=== PATIENT | male | born 1955 | race Caucasian/White ===

== ENCOUNTER 2018-02-28 10:54 | Day surgery (SDC) | payer OTHER, SELFPAY ==
[2018-02-28 11:17] VITALS: BP 150/70; PULSE 99; RESP 16; TEMP 36.7; O2SAT 98; BMI 25.3
--- NOTE | 2018-02-28 12:54 | PCM.OPRPT ---
Problem List (1) Cancer of upper lobe of right lung Status: Acute Report of Operation Date of Procedure: 02/28/18 Pre-Operative Diagnosis: c34.11 cancer upper lobe right lung Post-Operative Diagnosis: Same Surgery/Procedure Performed:: Placement of a right internal jugular PowerPort Type of Anesthesia:: MAC Anesthesiologist: Sina Burton Estimated Blood Loss (mL): 10 cc Description of Procedure: Patient was brought into the operating room. Placed in the supine position. Ultrasound of the neck on the right side revealed the internal jugular vein the neck and chest were then properly marked and then sterilely prepped and draped in the usual fashion. Seldinger's technique was used to gain access to the right internal jugular vein. Guidewire was placed over the needle. Local was injected and the chest incision was made and electrocautery was used to create a pocket for the port. Incision was made in the neck dilator and sheath were placed over the guidewire dilator and guidewire were removed single lumen catheter was placed through the sheath the sheath was removed. Fluoroscopy was used to confirm proper length. I tunneled from the chest over the collarbone into the neck and brought the catheter down. Catheter was cut to length locking hub was placed on the catheter to the port onto the catheter and the 2 secured with a locking hub. Catheter was flushed and irrigated with normal saline and hep flush without difficulty it worked properly and well. I sutured it into the pocket created with 2 sutures of 2-0 Prolene. Skin incisions were brought together with deep dermals of 3-0 Vicryl and then a running 4-0 Monocryl. Dermabond was applied sterile dressings were applied and the patient tolerated the procedure well. Postoperative chest x-ray was ordered. - Admit VTE Documentation VTE Present on Admission: No VTE Mechan Device Prophylaxis: SCD's VTE Pharm Prophylaxis ordered?: No Reason prophylaxis not ordered:: Treatment Not Indicated
[2018-02-28] MEDS: Cefazolin 2 GM in 0.9% Normal Saline 100 ML IV (12:56)
[2018-02-28] MEDS: Bupivacaine Mpf 0.5% 30 ML VIAL (13:25)
--- NOTE | 2018-02-28 13:29 | RAD_ITS ---
STUDY: X-RAY CHEST REASON FOR EXAM: Male, 62 years old. Line placement. TECHNIQUE: Single AP portable view of the chest. COMPARISON: None. FINDINGS: There is a right jugular Port-A-Cath with its tip in the proximal superior vena cava. There is no pneumothorax. The lungs are clear and expanded. There is no demonstrated pleural abnormality. Normal size heart. Normal mediastinum and barbara. Normal visualized pulmonary arteries. Normal visualized aortic arch and descending thoracic aorta. There is mild levoscoliosis and degenerative changes of the thoracic spine. There is degenerative osteoarthritis of the bilateral shoulders. This is most marked on the right. There is no demonstrated abnormality of the visualized soft tissue structures of the upper abdomen. RAD/CXR for Line Placement IMPRESSION: 1. Right jugular Port-A-Cath without pneumothorax. 2. No evidence of acute cardiopulmonary disease. Electronically Signed: Garfield Ahumada DO at 16:33 EDT Tel [phone], Service support ,
--- NOTE | 2018-02-28 13:30 | PCM.DC.POR ---
Discharge Diet: No Restrictions - Pain medication may cause nausea. You should typically eat light foods as you take your pain medication. Discharge Activity: May Shower - with the bandage in place 1-2 days after surgery. DO NOT SHOWER WHEN YOUR PORT IS ACCESSED. Additional Activity Instructions:: May not drive, work with heavy equipment, or sign legal documents for [address] if you are no longer taking narcotic pain medications. You may drive when you are no longer taking pain medications. Additional Dressing/Incision Instructions:: Leave the bandage on for 2-3 days. When you remove the bandage, leave the steri-strips intact until they fall off. Allergies/Adverse Reactions: Allergies No Known Allergies Allergy (Verified 02/28/18 11:15) Medications to take at Discharge Nicotine [Nicotine Patch] 1 ea TD DAILY 02/21/18 Docusate Sodium [Colace] 100 mg PO DAILY 02/22/18 Multivit-Minerals/FA/Lycopene [One Daily Men's Health Tablet] 1 tab PO DAILY 02/22/18 Sertraline HCl [Zoloft] 25 mg PO DAILY 30 Days #30 tab 02/22/18 Ibuprofen [Ibu] 800 mg PO TID 02/24/18 Acetaminophen [Tylenol Extra Strength] 500 mg PO TID 02/27/18 Omeprazole [Prilosec] 20 mg PO DAILY 02/27/18 Oxycodone HCl/Acetaminophen [Percocet 5/325] 1 tablet PO QHS 02/27/18 Oxycodone HCl/Acetaminophen [Percocet 5/325] 1 - 2 tab PO Q4H PRN PRN 4 Days #30 tab 02/28/18 The following prescriptions were given: Oxycodone HCl/Acetaminophen [Percocet 5/325] 1 - 2 tab PO Q4H PRN PRN 4 Days #30 tab PRN Reason: Pain Primary Care Physician: Reece Howe MD [Primary Care Provider] - Test Results: Test results from this visit will be discussed in further detail at your follow-up appointment, if applicable. Please Follow Up With: Dewayne Levy MD - [phone] When: Please plan to follow up in 7 days in the office.
[2018-02-28 13:41] VITALS: BP 138/77; BP 150/70; PULSE 84; RESP 16; TEMP 36.6; O2SAT 99
[2018-02-28 13:45] VITALS: BP 150/70; BP 154/91; PULSE 87; RESP 16; O2SAT 97
[2018-02-28 13:50] VITALS: BP 150/70; BP 152/82; PULSE 87; RESP 16; O2SAT 97
[2018-02-28 13:55] VITALS: BP 150/70; BP 150/90; PULSE 88; RESP 16; TEMP 36.5; O2SAT 97
[2018-02-28 14:36] VITALS: BP 150/70
== END 2018-02-28 14:40 | disposition home or self-care (01) ==
LOC: SDC 10:55 → AC 10:56
PROVIDERS: Family Provider Family Medicine; PCP Family Medicine; Visit Provider Surgery
PROC: (CPT 36561; principal; 2018-02-28 12:45)
DX: C34.11 Malignant neoplasm of upper lobe, right bronchus or lung (principal); J44.9 Chronic obstructive pulmonary disease, unspecified; Z87.891 Personal history of nicotine dependence
CPT/HCPCS: 36561; 71045; 77001; J7120; C1788

== ENCOUNTER → 2018-03-14 07:44 | Outpatient (CLI) | payer OTHER, SELFPAY ==
[2018-03-14] VITALS (10 sets, daily range): BP systolic 101–146; BP diastolic 51–76; PULSE 73–93; RESP 16–21; TEMP 37.1; O2SAT 95–100; BMI 25.7
--- NOTE | 2018-03-14 | IMM_PTH ---
PATIENT: REUBEN BURGOS LOC: CT U#:[id number] AGE/SX: 69/M ROOM: RE03/14/[address]: Dr. Tresa Paulson MD : 1955 BED: DIS: SPEC #: [id number] RECD: 03/15/18 13:36 STATUS: SARAH RELeslie #: [id number] DESIRAE: 03/14/18 00:[address]: Tresa Paulson DEPT: IMMUNOHISTOCHEMISTRY RECD BY: Kelsy Rios ENTERED: 03/15/18 13:37 SP TYPE: IMMUNO OTHR DR: Dr. Reece Howe MD Tissues: Lung, NOS Procedures: CK5-6 (initial) NAPSIN A (add) CK7 (add) TTF1 (add) P40 (add) PHYSICIAN & INSTITUTION [place] [phone] SPECIMEN INFORMATION: Tissue Source: Right lung Clinical Info: Malignant neoplasm of upper lobe, bronchus of lung Specimen Number: [id number] CPT code: 71123, 87217 x4 METHODOLOGY: Deparaffinized sections of prefer/formalin-fixed tissue or PAP/DQ stained slides are incubated with monoclonal/polyclonal antibodies/oligonucleotide probes. Localization is made via biotin free immunoperoxidase method. Appropriate controls are performed and reacted as expected. Results on target cell population are indicated in the following table: RESULTS: ANTIBODY / CLONE RESULT P40 (BC28) positive CK5-6 (D5 & 1684) positive TTF-1 (8G7G3/1) negative CK7 (OV-TL12/30) positive, focal Napsin A (Rabbit Polyclonal) negative These tests were developed and their performance characteristics determined by [facility]. They may not have been cleared or approved by the U.S. Food and Drug Administration. The FDA has determined that such clearance or approval is not necessary. INTERPRETATION: Right lung, CT-guided biopsy: Non-small cell carcinoma, favor squamous cell carcinoma. SJ:elena 03/15/18
--- NOTE | 2018-03-14 | LUNG_PTH ---
PATIENT: REUBEN BURGOS LOC: CT U#:[id number] AGE/SX: 69/M ROOM: RE03/14/[address]: Dr. Tresa Paulson MD : 1955 BED: DIS: SPEC #: [id number] RECD: 03/14/18 10:03 STATUS: SARAH SIERRA #: [id number] DESIRAE: 03/14/18 00:[address]: Tresa Paulson DEPT: SURGICAL PATHOLOGY RECD BY: Haile Mckenna ENTERED: 03/14/18 10:09 SP TYPE: LUNG BX OTHR DR: Dr. Reece Howe MD Tissues: Lung, NOS Procedures: Surgery Specimen Level IV Diff Quik Stain (control) HEADER OPERATION: CT-guided lung biopsy PRE-OP DIAGNOSIS: Malignant neoplasm of upper lobe, right bronchus of lung TISSUE SUBMITTED: Right lung MICROSCOPIC DIAGNOSIS Right lung, CT-guided core biopsy: Non-small cell carcinoma, favor squamous cell carcinoma. See comment. SJ:elena 03/15/18 COMMENT The specimen is evaluated at the time of CT-guided lung biopsy by Dr. Carr. Immediate Evaluation = Atypical cells noted suspicious for non-small cell carcinoma. Immunohistochemistry ([id number]) supports the above diagnosis. Specimen is sent for PD-L1 immunohistochemistry and results will be reported as an addendum. Please make reference to previous specimen from [facility] ([id number]), CT-guided core biopsy, right lung with diagnosis of poorly differentiated squamous cell carcinoma. Case has been reviewed in consultation with Dr. Davalos who concurs with the above diagnosis. IDC:AM MICROSCOPIC DESCRIPTION Slides are reviewed. GROSS DESCRIPTION Received in fixative is one container labeled with the patient's name and designated right lung, CT-guided core biopsy. The specimen consists of multiple irregular fragments of parsons soft tissue with brownish-black discoloration that in aggregate measure 1.5 x 0.1 x <0.1 cm. The specimen is totally submitted in one cassette. / YOLANDA:elena 8/14/18 TC:0 CPT: 31054, 28617
[2018-03-14 08:04] LABS: Absolute Lymphocyte Count 1.34 X10^3/ul (0.83-4.51); Absolute Neutrophil Count 16.8 X10^3/uL (2.0-7.7); Basophil# 0.06 X10^3/uL; Basophil% 0.3 % (0-1); Eosinophil# 1.38 X10^3/uL; Eosinophils% 6.6 % (0-5); Hematocrit 33.1 % (40-54); Hemoglobin 10.8 g/dl (13.0-16.5); Lymphocyte # 1.34 X10^3/ul (4.0); Lymphocyte % 6.4 % (19-41); Mean Corp Hgb Conc 32.6 g/gl (32-36); Mean Corpuscular Hgb 29.2 pg (27.0-32.0); Mean Corpuscular Volume 89.5 fL (80-94); Mean Platelet Vol. 9.3 fl (6.2-12.0); Monocyte# 1.34 X10^3/uL; Monocyte% 6.4 % (0-10); POSITIVE COUNT NO; POSITIVE DIFFERENTIAL NO; POSITIVE MORPHOLOGY NO; Platelet Count 427 K/mm3 (150-450); RBC Distribution Width CV 15.8 % (11.6-14.6); RBC Distribution Width SD 51.5 fl (35.1-43.9)
[2018-03-14 08:13] LABS: Prothrombin Time (Protime)PT. 13.1 SECONDS (11.7-14.9)
[2018-03-14 08:14] LABS: Partial Thromboplast Time 25.8 Seconds (24.1-36.2)
[2018-03-14 08:29] LABS: ALB/GLOB Ratio 0.7 RATIO (0.9-2.4); AST(SGOT) 20 U/L (15-37); Alanine Aminotransfer ALT/SGPT 17 U/L (16-61); Albumin, Serum 2.8 g/dL (3.2-5.0); Alkaline Phosphatase 114 U/L (45-117); Anion Gap 11 (5-15); BUN 25 mg/dL (7-18); BUN/Creat Ratio 16.6 RATIO (10-20); Calcium,Total 14.5 mg/dL (8.5-10.1); Chloride 103 mmol/L (98-107); Creatinine, Serum 1.51 mg/dL (0.70-1.30); EST Glomerular Filtration Rate 50 mL/min (>60); Est Glom Filt Rate - Afr Amer 61 mL/min (>60); Globulin 4.3 g/dL (2.2-4.2); Glucose 127 mg/dL (74-106); Potassium 3.5 mmol/L (3.5-5.1); Protein, Total 7.1 g/dL (6.4-8.2); Sodium Level 139 mmol/L (136-145)
--- NOTE | 2018-03-14 08:59 | NURSING ---
DR MARTIN AWARE OF HIGH CA LEVEL, OKAY TO GO AHEAD WITH PROCEDURE, WILL SEND AFTER RECOVERY TO DOCTORS OFFICE FOR INTERVENTION
[2018-03-14] MEDS: 0.9% Normal Saline 1,000 ML 500 ML IV (10:45)
== END ==
PROVIDERS: Family Provider Family Medicine; PCP Family Medicine; Visit Provider Internal Medicine Hematology & Oncology
DX: C34.11 Malignant neoplasm of upper lobe, right bronchus or lung (principal); R91.8 Other nonspecific abnormal finding of lung field
CPT/HCPCS: 32405; 96360; 96361; 36415; 71046; 77012; 80053; 85025; 85610; 85730; 88305; 88341; 88342; 99156; 99157; J7030; J7040; A4216

== ENCOUNTER 2018-03-15 19:15 | Observation (INO) | payer OTHER, SELFPAY ==
[2018-03-15 19:15] VITALS: BP 124/66; PULSE 88; RESP 22; TEMP 36.6; O2SAT 98; BMI 25.7
[2018-03-15 20:32] LABS: Absolute Lymphocyte Count 1.36 X10^3/ul (0.83-4.51); Absolute Neutrophil Count 15.8 X10^3/uL (2.0-7.7); Basophil# 0.06 X10^3/uL; Basophil% 0.3 % (0-1); Eosinophil# 1.12 X10^3/uL; Eosinophils% 5.7 % (0-5); Hematocrit 29.8 % (40-54); Hemoglobin 9.7 g/dl (13.0-16.5); Lymphocyte # 1.36 X10^3/ul (4.0); Lymphocyte % 6.9 % (19-41); Mean Corp Hgb Conc 32.6 g/gl (32-36); Mean Corpuscular Hgb 29.2 pg (27.0-32.0); Mean Corpuscular Volume 89.8 fL (80-94); Mean Platelet Vol. 9.3 fl (6.2-12.0); Monocyte# 1.21 X10^3/uL; Monocyte% 6.2 % (0-10); Neutrophil # 15.78 X10^3/uL (2.7-7.7); Neutrophil % 80.7 % (47-70); Platelet Count 402 K/mm3 (150-450); RBC Distribution Width CV 15.8 % (11.6-14.6); RBC Distribution Width SD 51.4 fl (35.1-43.9); Red Blood Count 3.32 M/mm3 (4.6-6.2); White Blood Count 19.6 K/mm3 (4.4-11.0)
[2018-03-15 20:33] LABS: POSITIVE COUNT NO; POSITIVE DIFFERENTIAL NO; POSITIVE MORPHOLOGY NO
[2018-03-15 20:55] LABS: Anion Gap 6 (5-15); BUN 19 mg/dL (7-18); BUN/Creat Ratio 17.6 RATIO (10-20); Calcium,Total 13.4 mg/dL (8.5-10.1); Chloride 107 mmol/L (98-107); Creatinine, Serum 1.08 mg/dL (0.70-1.30); EST Glomerular Filtration Rate 74 mL/min (>60); Est Glom Filt Rate - Afr Amer 89 mL/min (>60); Estimated Creatinine Clearance 70.92 ml/min; Glucose 90 mg/dL (74-106); Potassium 3.2 mmol/L (3.5-5.1); Sodium Level 139 mmol/L (136-145)
[2018-03-15 21:31] VITALS: PULSE 90; RESP 18; O2SAT 96
--- NOTE | 2018-03-15 22:22 | ED.VISSUMM ---
- ER Visit Summary Date of Service: 03/15/18 Chief Complaint: Shortness of breath History of Present Illness: The patient is a 62 M who presents with shortness of breath that began yesterday. Patient states his breathing has gotten worse today. Patient had a biopsy of his lung yesterday. Patient had a chest x-ray after the biopsy which showed a 5% pneumothorax. Patient had a follow-up x-ray today which showed a 10% pneumothorax. Patient talk to his oncologist today who told him to come to the emergency department if the developed any further shortness of breath. Patient denies any fevers. Patient denies any chest pain. Patient does admit to a cough but denies any sputum. Physical Examination: Vital signs are stable. Patient is afebrile. Patient is in no acute distress. Patient is not hypoxic on exam. Oral mucosa is pink and moist. Neck is supple there is no JVD noted. Heart was regular rate and rhythm. Lungs showed scattered rhonchi. There is good respiratory effort noted. Abdomen is soft and nontender. Cranial nerves II through XII are intact. There are no focal motor or sensory deficits noted. The remaining physical exam is within normal limits. Test Results: Chest x-ray shows improvement of the pneumothorax. It is now less than 10%. CBC shows a leukocytosis of 19.6. Hemoglobin was 9.7 and hematocrit was 29.8. Potassium was slightly low at 3.2. BUN was 19. Calcium was elevated at 13.4. Emergency Department Course and Treatment: Patient was given IV fluids here. Patient was placed on oxygen. I do not feel that the pneumothorax is large enough to warrant any sort of chest tube at this time. Case was discussed with Dr. Germain, he will admit the patient to his service. Patient and his family understood and were agreeable with the plan. All questions were answered. Disposition: Admit to hospital Impression: Pneumothorax This note was generated with WinWeb dictation software. It may contain incorrect words, spelling, and punctuation that were not noted in review of the chart prior to signing ED Disposition - Plan for ED Patient: Disposition: Acute Care Hospital [facility] Chief Complaint: Shortness of Breath Diagnosis: Pneumothorax, Hypercalcemia Referrals: Reece Howe MD [Primary Care Provider] -
--- NOTE | 2018-03-15 22:32 | PCM.HP.STD ---
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 In December 2017 patient had a spiral fracture of his right femur. Because of the spiral fracture of his right femur, cancer workup was initiated. An x-ray of his lungs, biopsy (on February 13, 2018) and further workup showed that he had a stage IV squamous cell lung cancer which was actually turned out not to be the cause of his right femur fracture. Rather his spiral fracture of the right femur was attributed to local bone hemangioma which was consequently resected. Subsequently he had hardware of nails and screws to fix his broken femur. His lung cancer is said to have spread to his mediastinal and lymph nodes. In regard to his lung cancer, his reports that it has spread to his mediastinum and lymph nodes; and patient is not a candidate of chemotherapy because of his history of right hip fracture. On March 14, 2018 patient had another biopsy of his right upper lung with the intent of determining whether he is a candidate for immunotherapy. After his second biopsy, a follow-up x-ray showed that he had 5% pneumothorax. The next day follow-up x-ray showed that patient has a 10% of a pneumothorax. Also an outpatient labs showed that patient had hypercalcemia with a calcium level of 14.5 Accordingly, his oncologist Dr. Paulson prescribed Zometa every 2 weeks and normal saline daily to treat his hypercalcemia due to malignancy. He has received a first dose of Zometa; and normal saline infusion was also started before this admission. Because of his right lung biopsy and pneumothorax, patient was instructed that if he has increased pain at the site of the biopsy or if he notices increased shortness of breath he should come to the emergency department. Because the patient experienced increased pain at the site of biopsy and increased shortness of breath with use of accessory muscles of breathing; patient came to the emergency department. At emergency department if his calcium level was 13.4; and his chest x-ray showed mild improvement of his pneumothorax compared to previous. Past Medical History Past Medical History (Chronic Problems): Chronic Problems (Last Reviewed 03/15/18 @ 10:36 by Christin Antonio) Anemia (Chronic) Femoral fracture (Chronic) hemangioma Medical History: Medical History (Last Reviewed 03/15/18 @ 10:36 by Christin Antonio) Depression (Acute) F32.9 COPD (chronic obstructive pulmonary disease) (Acute) J44.9 Lung mass (Acute) R91.8 RIGHT UPPER LOBE SQUAMOUS CELL CARCINOMA Femoral fracture (Chronic) S72.90XA hemangioma Allergies No Known Allergies Allergy (Verified 03/15/18 19:17) Home Medications: Ambulatory Orders Medication Instructions Recorded Nicotine [Nicotine Patch] 1 ea TD DAILY 02/21/18 Docusate Sodium [Colace] 100 mg PO DAILY PRN 02/22/18 Multivit-Minerals/FA/Lycopene [One 1 tab PO DAILY 02/22/18 Daily Men's Health Tablet] Sertraline HCl [Zoloft] 25 mg PO DAILY 30 Days #30 tab 02/22/18 Acetaminophen [Tylenol Extra 500 mg PO TID 02/27/18 Strength] Omeprazole [Prilosec] 20 mg PO DAILY 02/27/18 Oxycodone HCl/Acetaminophen 1 - 2 tab PO QHS 02/27/18 [Percocet 5/325] Lidocaine/Prilocaine 30 gm TP DAILY PRN PRN #1 cream..g. 03/08/18 [Lidocaine-Prilocaine Cream] DiphenhydrAMINE [Benadryl] 50 mg PO QHS 03/16/18 Surgical History: Surgical History (Last Updated 03/15/18 @ 10:36 by Christin Antonio) history of port-a-cath insertion (Acute) 02/28/18 History of bronchoscopy (Acute) Z98.890 History of lung biopsy Z98.890 03/14/18 [facility] Surgical History: - - History of right hip surgery Lives: Spouse/ Significant Other Smoking Status: Former smoker Tobacco Use: Non-smoker Alcohol: None - *Family History Maternal Family History: Family History (Last Reviewed 03/15/18 @ 10:36 by Christin Antonio) Brother Kidney disease Hypertension Mother CHF (congestive heart failure) Review of Systems Constitutional: Denies: Chills, Fever, Weight Change Eyes: Denies: Blurred vision, Pain HEENT: Denies: Head Aches, Sinus Congestion, Sinus Drainage Cardiovascular: Denies: Chest Pain, Palpitations Respiratory: Reports: Shortness of Breath Gastrointestinal: Denies: Abdominal Pain, Nausea, Vomiting Genitourinary: Denies: Dysuria Musculoskeletal: Reports: Shoulder Pain - Right shoulder pain at the site of biopsy., - - Right and hip pain Skin: Denies: Rash, Wounds Neurological: Denies: Numbness, Tingling, Focal weakness Psychiatric: Denies: Anxiety, Depression, Homicidal Ideations, Suicidal Ideations Hematologic/ Lymphatic: Denies: Purpura VTE Information - Inpt Only VTE Present on Admission: No VTE Mechan Device Prophylaxis: None VTE Pharm Prophylaxis ordered?: Yes Patient Problems: Active and Suspected Problems (Last Reviewed 03/15/18 @ 10:36 by Christin Antonio) Cancer of upper lobe of right lung (Acute) Regional lymph node metastasis present (Acute) Lung metastases (Acute) Hypercalcemia of malignancy (Acute) SYEDA (acute kidney injury) (Acute) Pneumothorax (Acute) Hypercalcemia (Acute) Pneumothorax of right lung after biopsy (Acute) 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 (Acute) - Physical Exam General: Alert, Oriented x3, Cooperative HEENT: Atraumatic, PERRLA, EOMI, Normocephalic Neck: Supple, No JVD, Negative Carotid Bruits Lungs: Diminished Cardiovascular: Regular rate, No murmurs Abdomen: Bowel Sounds Present, Soft, Non Tender Extremities: Tenderness - Right upper shoulder, - - Right hip and right thighnontender Skin: No rashes, No breakdown Musculoskeletal: No Muscle Wasting Neurological: Cranial nerves II-XII grossly intact Vital Signs Temp Pulse Resp BP Pulse Ox 97.8 F 90 18 124/66 H 96 03/15/18 19:15 03/15/18 21:31 03/15/18 21:31 03/15/18 19:15 03/15/18 21:31 Oxygen Flow Rate (L/min) 2 Oxygen Delivery Method Nasal Cannula Weight: 78.925 kg Body Mass Index (BMI) 25.7 Laboratory Tests Past 24 Hrs 03/15/18 03/15/18 20:20 20:20 WBC 19.6 H RBC 3.32 L Hgb 9.7 L Hct 29.8 L MCV 89.8 MCH 29.2 MCHC 32.6 RDW 15.8 H RDW Differential 51.4 H Plt Count 402 MPV 9.3 Immature Gran % (Auto) 0.200 Neut % (Auto) 80.7 H Lymph % (Auto) 6.9 L [place] % (Auto) 6.2 Eos % (Auto) 5.7 H Baso % (Auto) 0.3 Absolute Neuts (auto) 15.8 H Absolute Lymphs (auto) 1.36 Total Counted Not Reportable Sodium 139 Potassium 3.2 L Chloride 107 Carbon Dioxide 26.0 Anion Gap 6 BUN 19 H Creatinine 1.08 Estim Creat Clear Calc 70.92 Est GFR (MDRD) Af Amer 89 Est GFR (MDRD) Non-Af 74 BUN/Creatinine Ratio 17.6 Glucose 90 Calcium 13.4 H* Assessment/Plan All Active Problems (Last Updated 03/15/18 @ 10:36 by Christin Antonio) Cancer of upper lobe of right lung (Acute) Regional lymph node metastasis present (Acute) Lung metastases (Acute) Hypercalcemia of malignancy (Acute) SYEDA (acute kidney injury) (Acute) Pneumothorax (Acute) Hypercalcemia (Acute) Pneumothorax of right lung after biopsy (Acute) 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 Acute respiratory distress Due to proximity of his pneumothorax and respiratory distress, his respiratory distress is likely due to his right pneumothorax. Repeat chest x-ray ordered. Scheduled oxygen by nasal cannula. Clinical monitoring for progression of lung cancer symptoms. Hypercalcemia of malignancy Normal saline IV infusion Patient can continue Zometa outpatient Right shoulder pain Likely due to trauma from biopsy. There may be a component of pain from his cancer. Scheduled Tylenol continued Oxycodone ordered. Home Percocet on hold. Right hip fracture Status post fixation by hardware Patient states that the patient can walk on right hip with a walker and weights bearing as tolerated; continue He also uses a wheelchair. PT and OT to work patient. Right lung squamous cell carcinoma Oncologist to follow. DVT prophylaxis Because of high risk, lovenox as ordered. Code Visit Inpatient E&M: 97486 Init Hosp L3
[2018-03-15] MEDS: 0.9% Normal Saline 1,000 ML 1000 ML IV (22:53)
[2018-03-15] MEDS: Morphine 4 MG/ML Syringe IV (22:54)
[2018-03-15 22:55] VITALS: BP 147/86; PULSE 93; RESP 20; O2SAT 97
[2018-03-15 23:25] VITALS: O2SAT 97
[2018-03-15 23:34] VITALS: BMI 26.2
[2018-03-15 23:37] VITALS: BP 141/75; PULSE 92; RESP 16; TEMP 36.9; O2SAT 100
[2018-03-15 23:40] VITALS: BMI 26.2
[2018-03-16] VITALS (14 sets, daily range): BP systolic 114–137; BP diastolic 72–77; PULSE 83–96; RESP 16–20; TEMP 36.4–37.2; O2SAT 97–99
[2018-03-16] MEDS: Acetaminophen 500 MG Tablet PO ×4 (00:19→21:42)
[2018-03-16] MEDS: 0.9% Normal Saline 1,000 ML 150 ML IV ×2 (00:24→07:00)
[2018-03-16] MEDS: 0.9% NaCl VAD Flush 10 ML IV ×2 (04:23→04:24)
[2018-03-16 04:37] LABS: Hematocrit 27.9 % (40-54); Hemoglobin 9.1 g/dl (13.0-16.5); Mean Corp Hgb Conc 32.6 g/gl (32-36); Mean Corpuscular Hgb 30.1 pg (27.0-32.0); Mean Corpuscular Volume 92.4 fL (80-94); Mean Platelet Vol. 9.3 fl (6.2-12.0); Platelet Count 422 K/mm3 (150-450); RBC Distribution Width CV 15.6 % (11.6-14.6); Red Blood Count 3.02 M/mm3 (4.6-6.2)
[2018-03-16 04:40] LABS: Scan Indicated on CBC? Y/N NO
[2018-03-16 04:52] LABS: Anion Gap 8 (5-15); BUN 17 mg/dL (7-18); BUN/Creat Ratio 18.4 RATIO (10-20); Calcium,Total 12.1 mg/dL (8.5-10.1); Chloride 112 mmol/L (98-107); Creatinine, Serum 0.92 mg/dL (0.70-1.30); EST Glomerular Filtration Rate 88 mL/min (>60); Est Glom Filt Rate - Afr Amer 107 mL/min (>60); Estimated Creatinine Clearance 83.25 ml/min; Glucose 85 mg/dL (74-106); Potassium 3.7 mmol/L (3.5-5.1); Sodium Level 145 mmol/L (136-145)
[2018-03-16] MEDS: oxyCODONE 5 MG Tablet PO ×4 (05:15→19:01)
--- NOTE | 2018-03-16 09:34 | PCM.PN.HOSP ---
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 He seems to be doing well psychologically with his recent diagnosis and the medical issues he has had. Vitals/I&O's: Vital Signs Temp Pulse Resp BP Pulse Ox 97.6 F L 86 18 128/72 H 99 03/16/18 08:39 03/16/18 08:39 03/16/18 08:39 03/16/18 08:39 03/16/18 08:39 Oxygen Flow Rate (L/min) 2 Oxygen Delivery Method Nasal Cannula Weight: 177 lb 7.554 oz Body Mass Index (BMI) 26.2 Intake and Output for Last 24 Hours 03/14/18 03/15/18 03/16/18 23:59 23:59 23:59 Intake Total 1186 / 1186 Balance 1186 / 1186 General: Alert, Oriented x3, Cooperative, No apparent distress HEENT: Atraumatic, EOMI, Normocephalic Oral: Dry Mucosa Neck: Supple, No JVD Lungs: Clear to auscultation, Normal air movement, No rhonchi, No rales, Diminished - throughout, Wheezes - slight in right lung base Cardiovascular: Regular rate, Regular Rhythm, Normal S1, Normal S2, No murmurs Abdomen: Soft, Non Tender, Non-Distended, No Hepato-splenomegaly Psych/Mental Status: Normal Affect, Appropriate Laboratory Results 03/16/18 04:20: WBC 18.0 H, RBC 3.02 L, Hgb 9.1 L, Hct 27.9 L, MCV 92.4, MCH 30.1, MCHC 32.6, RDW 15.6 H, RDW Differential 51.0 H, Plt Count 422, MPV 9.3 03/16/18 04:20: Sodium 145, Potassium 3.7, Chloride 112 H, Carbon Dioxide 25.0, Anion Gap 8, BUN 17, Creatinine 0.92, Estim Creat Clear Calc 83.25, Est GFR (MDRD) Af Amer 107, Est GFR (MDRD) Non-Af 88, BUN/Creatinine Ratio 18.4, Glucose 85, Calcium 12.1 H Current Medications Acetaminophen (Tylenol) 500 mg PO TID [facility] Last Admin: 03/16/18 05:15 Dose: 500 mg Docusate Sodium (Colace) 100 mg PO DAILY PRN PRN PRN Reason: Constipation Enoxaparin Sodium (Lovenox) 40 mg SC DAILY@1000 [facility] Heparin Sodium (Beef Lung) (Heparin 500 Unit/5 Ml (100/Ml)) 500 unit IV UD PRN PRN Reason: HEPARIN FLUSH Sodium Chloride () 1,000 mls @ 150 mls/hr IV .Q6H40M [facility] Stop: 03/16/18 12:44 Last Admin: 03/16/18 00:24 Dose: 150 mls/hr Lidocaine/Prilocaine (Emla Cream W/Tegaderm) 30 gm TOPICAL DAILY PRN PRN PRN Reason: NOT SPECIFIED Magnesium Hydroxide (Milk Of Magnesia) 30 ml PO DAILY PRN PRN PRN Reason: Constipation Morphine Sulfate () 2 - 4 mg IV Q4H PRN PRN PRN Reason: MOD-SEVERE PAIN (4-10/10) Morphine Sulfate () 2 - 4 mg IV Q4H PRN PRN PRN Reason: MOD-SEVERE PAIN (4-10/10) Multivitamins/Minerals (Multivitamin With Minerals) 1 tablet PO DAILY@0800 [facility] Nicotine (Nicoderm Cq (Pbkc)) 21 mg TRANSDERM. DAILY [facility] Nutritional Formula (Lactose Free) (Ensure Enlive) 120 ml PO 4X/DAY [facility] Ondansetron HCl (Zofran) 4 mg IV Q8H PRN PRN PRN Reason: NAUSEA Oxycodone HCl (Oxyir) 5 - 10 mg PO Q4H PRN PRN PRN Reason: MOD-SEVERE PAIN (4-10/10) Last Admin: 03/16/18 05:15 Dose: 10 mg Pantoprazole Sodium (Protonix) 20 mg PO DAILY [facility] Sertraline HCl (Zoloft) 25 mg PO DAILY [facility] Sodium Chloride () 10 ml IV UD PRN PRN Reason: VAD FLUSH Last Admin: 03/16/18 04:24 Dose: 10 ml Zolpidem Tartrate (Ambien (Generic)) 5 mg PO QHS PRN PRN PRN Reason: INSOMNIA Medical Necessity - Tobacco Use Smoking Status: Former smoker Tobacco Use: Non-smoker Assessment/Plan All Active Problems (Last Updated 03/15/18 @ 10:36 by Christni Antonio) Cancer of upper lobe of right lung (Acute) Regional lymph node metastasis present (Acute) Lung metastases (Acute) Hypercalcemia of malignancy (Acute) SYEDA (acute kidney injury) (Acute) Pneumothorax (Acute) Hypercalcemia (Acute) Pneumothorax of right lung after biopsy (Acute) 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 Stage 4 non-small cell lung cancer on the right/Malignant hypercalcemia/Post-procedure pneumothorax\ - He has had 2 biopsys to evaluate his lung mass, the initial biopsy did not obtain enough tissue - He is most recent biopsy was complicated with a 5-10% PTX, he presented yesterday because he was symptomatic with chest pain and SOB - Hypercalcemia was noticed previously and was given zolendronic acid and he has been continued on IVF@150cc/hr - Consult to heme/onc, appreciate recs - Will maintain on O2 and monitor PTX with f/u CXR, if remains stable today and tomorrow may be able to DC in am - C/w pain control with morphine PRN and percocet on DC 2. Leukocytosis/Anemia - Anemia is likely d/t cancer and recent procedures for his femur fracture - Elevated WBC likely related to recent procedural stress, he is afebrile and no obvious source of infection - Continue to monitor 3. GERD - stable - c/w PPI 4. Depression - Stable - c/w zoloft DVT: Lovenox Code: FULL Diet: Cardiac Dispo: Monitor PTX, await CXR Code Visit Inpatient E&M: 29849 Init Hosp L3
--- NOTE | 2018-03-16 09:38 | PN_ITS ---
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 He seems to be doing well psychologically with his recent diagnosis and the medical issues he has had. Vitals/I&O's: Vital Signs Temp Pulse Resp BP Pulse Ox 97.6 F L 86 18 128/72 H 99 03/16/18 08:39 03/16/18 08:39 03/16/18 08:39 03/16/18 08:39 03/16/18 08:39 Oxygen Flow Rate (L/min) 2 Oxygen Delivery Method Nasal Cannula Weight: 177 lb 7.554 oz Body Mass Index (BMI) 26.2 Intake and Output for Last 24 Hours 03/14/18 03/15/18 03/16/18 23:59 23:59 23:59 Intake Total 1186 / 1186 Balance 1186 / 1186 General: Alert, Oriented x3, Cooperative, No apparent distress HEENT: Atraumatic, EOMI, Normocephalic Oral: Dry Mucosa Neck: Supple, No JVD Lungs: Clear to auscultation, Normal air movement, No rhonchi, No rales, Diminished - throughout, Wheezes - slight in right lung base Cardiovascular: Regular rate, Regular Rhythm, Normal S1, Normal S2, No murmurs Abdomen: Soft, Non Tender, Non-Distended, No Hepato-splenomegaly Psych/Mental Status: Normal Affect, Appropriate Laboratory Results 03/16/18 04:20: WBC 18.0 H, RBC 3.02 L, Hgb 9.1 L, Hct 27.9 L, MCV 92.4, MCH 30.1, MCHC 32.6, RDW 15.6 H, RDW Differential 51.0 H, Plt Count 422, MPV 9.3 03/16/18 04:20: Sodium 145, Potassium 3.7, Chloride 112 H, Carbon Dioxide 25.0, Anion Gap 8, BUN 17, Creatinine 0.92, Estim Creat Clear Calc 83.25, Est GFR ( MDRD) Af Amer 107, Est GFR (MDRD) Non-Af 88, BUN/Creatinine Ratio 18.4, Glucose 85, Calcium 12.1 H Current Medications Acetaminophen (Tylenol) 500 mg PO TID [facility] Last Admin: 03/16/18 05:15 Dose: 500 mg Docusate Sodium (Colace) 100 mg PO DAILY PRN PRN PRN Reason: Constipation Enoxaparin Sodium (Lovenox) 40 mg SC DAILY@1000 [facility] Heparin Sodium (Beef Lung) (Heparin 500 Unit/5 Ml (100/Ml)) 500 unit IV UD PRN PRN Reason: HEPARIN FLUSH Sodium Chloride () 1,000 mls @ 150 mls/hr IV .Q6H40M [facility] Stop: 03/16/18 12:44 Last Admin: 03/16/18 00:24 Dose: 150 mls/hr Lidocaine/Prilocaine (Emla Cream W/Tegaderm) 30 gm TOPICAL DAILY PRN PRN PRN Reason: NOT SPECIFIED Magnesium Hydroxide (Milk Of Magnesia) 30 ml PO DAILY PRN PRN PRN Reason: Constipation Morphine Sulfate () 2 - 4 mg IV Q4H PRN PRN PRN Reason: MOD-SEVERE PAIN (4-10/10) Morphine Sulfate () 2 - 4 mg IV Q4H PRN PRN PRN Reason: MOD-SEVERE PAIN (4-10/10) Multivitamins/Minerals (Multivitamin With Minerals) 1 tablet PO DAILY@0800 [facility] Nicotine (Nicoderm Cq (Pbkc)) 21 mg TRANSDERM. DAILY [facility] Nutritional Formula (Lactose Free) (Ensure Enlive) 120 ml PO 4X/DAY [facility] Ondansetron HCl (Zofran) 4 mg IV Q8H PRN PRN PRN Reason: NAUSEA Oxycodone HCl (Oxyir) 5 - 10 mg PO Q4H PRN PRN PRN Reason: MOD-SEVERE PAIN (4-10/10) Last Admin: 03/16/18 05:15 Dose: 10 mg Pantoprazole Sodium (Protonix) 20 mg PO DAILY [facility] Sertraline HCl (Zoloft) 25 mg PO DAILY [facility] Sodium Chloride () 10 ml IV UD PRN PRN Reason: VAD FLUSH Last Admin: 03/16/18 04:24 Dose: 10 ml Zolpidem Tartrate (Ambien (Generic)) 5 mg PO QHS PRN PRN PRN Reason: INSOMNIA Medical Necessity - Tobacco Use Smoking Status: Former smoker Tobacco Use: Non-smoker Assessment/Plan All Active Problems (Last Updated 03/15/18 @ 10:36 by Christin Antonio) Cancer of upper lobe of right lung (Acute) Regional lymph node metastasis present (Acute) Lung metastases (Acute) Hypercalcemia of malignancy (Acute) SYEDA (acute kidney injury) (Acute) Pneumothorax (Acute) Hypercalcemia (Acute) Pneumothorax of right lung after biopsy (Acute) 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 Stage 4 non-small cell lung cancer on the right/Malignant hypercalcemia/Post- procedure pneumothorax\ - He has had 2 biopsys to evaluate his lung mass, the initial biopsy did not obtain enough tissue - He is most recent biopsy was complicated with a 5-10% PTX, he presented yesterday because he was symptomatic with chest pain and SOB - Hypercalcemia was noticed previously and was given zolendronic acid and he has been continued on IVF@150cc/hr - Consult to heme/onc, appreciate recs - Will maintain on O2 and monitor PTX with f/u CXR, if remains stable today and tomorrow may be able to DC in am - C/w pain control with morphine PRN and percocet on DC 2. Leukocytosis/Anemia - Anemia is likely d/t cancer and recent procedures for his femur fracture - Elevated WBC likely related to recent procedural stress, he is afebrile and no obvious source of infection - Continue to monitor 3. GERD - stable - c/w PPI 4. Depression - Stable - c/w zoloft DVT: Lovenox Code: FULL Diet: Cardiac Dispo: Monitor PTX, await CXR Code Visit Inpatient E&M: 06621 Init Hosp L3
[2018-03-16] MEDS: Multivitamins,Ther W-Minerals Tablet 1 TABLET PO (09:49)
[2018-03-16] MEDS: Enoxaparin 40 MG/0.4 ML Syringe SC (09:49)
[2018-03-16] MEDS: Pantoprazole Sodium 20 MG Tablet PO (09:49)
[2018-03-16] MEDS: Sertraline 50 MG Tablet 25 MG PO (09:49)
[2018-03-16] MEDS: 0.9% Normal Saline 1,000 ML 100 ML IV (16:08)
--- NOTE | 2018-03-16 17:05 | ONC.CON.INP2 ---
- Problem List (1) Cancer of upper lobe of right lung Status: Acute (2) Regional lymph node metastasis present Status: Acute (3) Lung metastases Status: Acute (4) Hypercalcemia of malignancy Status: Acute (5) SYEDA (acute kidney injury) Status: Acute (6) Anemia Status: Chronic (7) Pneumothorax Status: Acute Consult Referring Physician: Hospitalist service Consult Results: Lung cancer, malignant hypercalcemia, pneumothorax post lung mass biopsy Subjective Date of Service:: 03/16/18 Chief Complaint: sob, weak, pneumothorax History of Present Illness: Patient is a 62-year-old male smoker till December 2017 when he presented with a pathologic fracture of the right femur (biopsy revealed a hemangioma no evidence of malignancy) for which he underwent open reduction and renzo fixation. Chest x-ray prompted a CT scan of the chest revealing a right upper lobe lung mass with mediastinal adenopathy and multiple bilateral pulmonary nodules consistent with metastatic disease. On January 12, 2018 he underwent an EBUS with biopsy which confirmed a poorly differentiated non-small cell lung cancer favoring squamous cell. Biopsy not sufficient for PDL 1 testing and a repeat biopsy was done March 14, 2018 which was complicated with a small initially asymptomatic pneumothorax 5%. Follow-up chest x-ray March 15 showed progression to 10% and later on March 15 patient started to experience more chest discomfort and dyspnea and was hospitalized. Repeat chest x-ray that evening and this a.m. showed no further progression. PET/CT February 02 confirmed multiple bilateral hyper metabolic pulmonary nodules consistent with metastatic disease, hypermetabolic mediastinal and right hilar adenopathy consistent with katherin metastases and abnormal uptake and postsurgical changes in the right femur. No other abnormal bone uptake was noted. Brain MRI did not show evidence of DUCT CLEANER metastases. Baseline pretreatment CMP revealed malignant hypercalcemia and azotemia presumably acute kidney injury from hypercalcemia, given IV fluid hydration and Zometa March 14, 2018. His calcium is trending downward. Past Medical History: Chronic Problems (Last Updated 03/16/18 @ 10:56 by Tresa Paulson MD) Anemia (Chronic) Femoral fracture (Chronic) hemangioma Past Medical/Surgical History: Past Medical History - Most Recent Inpatient Visit Past Medical History Start: 03/15/18 23:28 Text: Status: Complete Freq: ONCE Protocol: Document 03/15/18 23:40 LIZBETH (Rec: 03/15/18 23:[address] [facility] [place] [id number]) BMI Required to complete PMH What is Patient's BMI 26.2 Past Medical History Unable History Recalled Yes Query Text:Pt Unable/Family Not Present Neurologic Medical History Hx Stroke/TIA No Hx Dementia/Alzheimer's No Hx Parkinson's Disease No Hx Seizures No Hx Multiple Sclerosis No Hx Migraines No Cardiac Medical History VTE Present on Admission No Hx of Deep Vein Thrombosis/VTE/PE No Hx Hypertension No Hx Chest Pain/Angina No Hx Heart Attack No Hx Cardiac Surgery/Stents/Etc. No Hx Heart Failure No Hx Pacemaker/AICD No Hx Irregular Heartbeat and/or Afib No Hx Anticoagulant Therapy No Query Text:(Coumadin, Aspirin, Plavix, Xarelto, etc.) Hx Pain in Legs when Walking/Leg Cramps Yes Respiratory Medical History Hx COPD No Hx Emphysema Yes Hx Smoking Yes: QUIT 01/01/18 Smoking Status Former smoker Hx Smoking Cessation Date 01-04-2018 Hx Tobacco Use in last 12 months No Hx Sleep Apnea No Do you snore loudly (louder than talking No or can be heard through closed doors)? Do you often feel tired/ fatigued/ No sleepy during daytime? Has anyone observed you stop breathing No during sleep? STOP Results Negative GI Medical History Hx Ulcer No Hx Hepatitis No Hx Cirrhosis No Hx GI Bleed No Hx Unplanned Weight Loss Yes: LOST 29#LBS SINCE BROKEN [facility]EMUR Genitourinary Medical History Indwelling Catheter in Place on Arrival/ No Admission Hx Renal Disease No Hx Dialysis No Musculoskeletal History Hx Arthritis Yes: L ANKLE, R KNEE Hx Rheumatoid Arthritis No Endocrine Medical History Hx Diabetes No Hx Thyroid Disease No Hematologic Medical History Hx of Blood Transfusion Yes Hx of Transfusion in last 3 Months No Ever experience any problems with No transfusion(s)? Hx of Preganancy in last 3 Months N/A Nurse Filling Out Transfusion & [id number] Questions: Date: 03/15/18 Time: 23:49 Psycho/Social Medical History Hx Depression Yes Hx Anxiety No Hx Behavior Disorder No Hx Alcohol Use No Hx Substance Use No Other Medical History Hx Blood Disorders No Hx Anemia No Hx Cancer Yes: STAGE 4 SQUAMOUS LUNG CA Hx Drug Resistant Organism No Wound/Pressure Injury Present on Arrival No /Admission Query Text:If yes, chart assessment in Shift/Clinical Findings Central Line/PICC/VAD Present on Arrival Yes /Admission Methicillin Resistant Staphylococcus aureus Screening Active MRSA No Risk for Readmission Number of Risk Factors 7 At Risk for Readmission Patient is At Risk For Readmission Patient is eligible for Call Back Y Past Medical History (Last Updated 03/16/18 @ 10:56 by Tresa Paulson MD) Pneumothorax (Acute) SYEDA (acute kidney injury) (Acute) Hypercalcemia of malignancy (Acute) Lung cancer (Acute) Depression (Acute) COPD (chronic obstructive pulmonary disease) (Acute) Femoral fracture (Chronic) Lung mass (Acute) Past Surgical History (Last Updated 03/15/18 @ 10:36 by Christin Antonio) history of port-a-cath insertion (Acute) History of bronchoscopy (Acute) History of lung biopsy (Acute) Maternal Family History: Family History (Last Reviewed 03/15/18 @ 10:36 by Christin Antonio) Brother Kidney disease Hypertension Mother CHF (congestive heart failure) - Social History Lives: Spouse/ Significant Other Smoking Status: Former smoker Tobacco Use: Non-smoker Alcohol: None Allergies/Adverse Reactions: Allergy/AdvReac Type Severity Reaction Status Date / Time No Known Allergies Allergy Verified 03/15/18 19:17 Review of Systems Constitutional:: Reports: Weakness, Fatigue, Weight loss, Appetite change. Denies: Fever, Sweats, Chills Cardiovascular:: Reports: Dyspnea on exertion - Improving and going back to baseline. Denies: Chest pain, Palpitations, Orthopnea, PND, Shortness of breath Respiratory: Reports: Shortness of Breath - Improving to baseline, - - Pain at the recent biopsy site is subsiding. Denies: Cough, Hemoptysis, Wheezing Gastrointestinal:: Denies: Abdominal pain, Nausea, Vomiting, Diarrhea, Constipation, Hematochezia Genitourinary: Denies: Dysuria, Hematuria, 15, Flank pain Musculoskeletal:: Denies: Back pain, Myalgia, Arthralgia Skin: Denies: Rash, Skin Changes, Wounds Neurological:: Denies: Headache, Dizziness, Visual changes, Tinnitus, Hearing loss Psychiatric: Reports: Anxiety - Improving. Denies: Depression, Homicidal Ideations, Suicidal Ideations Vital Signs Height 5 ft 9 in Weight: 80.5 kg Weight in Pounds 177.5 lbs Pulse Ox 98 Temperature 98.2 F Pulse Rate 85 Respiratory Rate 16 Blood Pressure 114/77 Blood Pressure Position Semi-Fowlers - Physical Exam General: Alert, Oriented x3, No apparent distress, - - ECOG 1-2 HEENT: Atraumatic, PERRLA, EOMI, Normocephalic Oropharynx:: Dry mucosa Neck:: Supple, Trachea midline, - - Port okay. Negative for: JVD, bilateral Cardiac:: Regular rate, Regular rhythm, Normal S1, Normal S2. Negative for: Murmur Lungs: Clear to auscultation, Diminished, Excusion symmetrical. Negative for: Rhonchi, Wheezes Abdomen:: Soft, Non-tender, Non-distended. Negative for: Hepatosplenomegaly Extremities:: Negative for: Cyanosis, Edema Neurological: Neuro grossly intact Skin:: Negative for: Lesions, Rash, Petechiae, Ecchymosis Psychiatric:: Appropriate affect, Euthymic Lymphatics:: Negative for: Cervical lymphadenopathy, Supraclavicular lymphadenopathy Laboratory Data: Laboratory Tests 03/16/18 03/16/18 Range/Units 04:20 04:20 WBC 18.0 H (4.4-11.0) K/mm3 RBC 3.02 L (4.6-6.2) M/mm3 Hgb 9.1 L (13.0-16.5) g/dl Hct 27.9 L (40-54) % MCV 92.4 (80-94) fL MCH 30.1 (27.0-32.0) pg MCHC 32.6 (32-36) g/gl RDW 15.6 H (11.6-14.6) % RDW Differential 51.0 H (35.1-43.9) fl Plt Count 422 (150-450) K/mm3 MPV 9.3 (6.2-12.0) fl Sodium 145 (136-145) mmol/L Potassium 3.7 (3.5-5.1) mmol/L Chloride 112 H (98-107) mmol/L Carbon Dioxide 25.0 (21.0-32.0) mmol/L Anion Gap 8 (5-15) BUN 17 (7-18) mg/dL Creatinine 0.92 (0.70-1.30) mg/dL Estim Creat Clear Calc 83.25 ml/min Est GFR (MDRD) Af Amer 107 (>60) mL/min Est GFR (MDRD) Non-Af 88 (>60) mL/min BUN/Creatinine Ratio 18.4 (10-20) RATIO Glucose 85 (74-106) mg/dL Calcium 12.1 H (8.5-10.1) mg/dL Diagnostic Data: Diagnostic Data Chest X-Ray 03/16/18 10:00 IMPRESSION: Stable exam. Electronically Signed: Reece Johansen, at 11:53 EDT Tel , Service support , Assessment and Plan 62-year-old gentleman with stage IV non-small cell lung cancer complicated with malignant hypercalcemia and post lung mass biopsy pneumothorax. 1. Malignant hypercalcemia improving following Zometa on March 14 and IV plus p.o. hydration. As he continues to respond, will follow his calcium daily and he may be able to be discharged home tomorrow March 17 with follow-up in the outpatient on Tuesday, March 20. 2. Small pneumothorax post lung mass biopsy March 14 stable, repeat chest x-ray March 17 and again stable patient would be able to go home follow-up as outpatient. 3. Definitive treatment for his metastatic lung cancer is pending pathologic examination for PDL 1 mutation. If the patient over expresses PDL 1 he would be a candidate for immune therapy with Keytruda. If the cancer does not over express this vibratory pile driver mutation he will be treated with standard combination chemotherapy. We will follow-up following discharge. Patient was seen and examined, impression and plan discussed. Medications: Prescriptions This Visit Medication Instructions Recorded DiphenhydrAMINE [Benadryl] 50 mg PO QHS 03/16/18 Medications Added to Medication List This Visit Category Date Time Status 0.9% Normal Saline 1,000 ml Med 03/16/18 16:05 Active IV 100 mls/hr Enoxaparin [Lovenox] Med 03/16/18 10:00 Active 40 mg SC DAILY@1000 Nicotine [Nicoderm Cq (PBKC)] Med 03/16/18 10:00 Active 21 mg TRANSDERM. DAILY Pantoprazole Sodium [Protonix] Med 03/16/18 10:00 Active 20 mg PO DAILY Sertraline HCl [Zoloft] Med 03/16/18 10:00 Active 25 mg PO DAILY Primary Care Provider: Reece Howe MD Referring Provider:
[2018-03-16] MEDS: Zolpidem Tartrate 5 MG Tablet PO (21:42)
[2018-03-17] MEDS: 0.9% Normal Saline 1,000 ML 100 ML IV (02:17)
[2018-03-17 03:06] VITALS: PULSE 98
[2018-03-17 03:35] VITALS: BP 134/75; PULSE 94; RESP 14; TEMP 36.9; O2SAT 97
[2018-03-17] MEDS: oxyCODONE 5 MG Tablet PO (03:39)
[2018-03-17 05:35] LABS: Absolute Lymphocyte Count 0.98 X10^3/ul (0.83-4.51); Absolute Neutrophil Count 13.9 X10^3/uL (2.0-7.7); Basophil# 0.05 X10^3/uL; Basophil% 0.3 % (0-1); Eosinophil# 1.12 X10^3/uL; Eosinophils% 6.5 % (0-5); Hematocrit 27.4 % (40-54); Hemoglobin 8.9 g/dl (13.0-16.5); Lymphocyte # 0.98 X10^3/ul (4.0); Lymphocyte % 5.7 % (19-41); Mean Corp Hgb Conc 32.5 g/gl (32-36); Mean Corpuscular Hgb 30.1 pg (27.0-32.0); Mean Corpuscular Volume 92.6 fL (80-94); Mean Platelet Vol. 9.6 fl (6.2-12.0); Monocyte# 1.05 X10^3/uL; Monocyte% 6.1 % (0-10); Neutrophil # 13.88 X10^3/uL (2.7-7.7); Neutrophil % 81.2 % (47-70); Platelet Count 453 K/mm3 (150-450); RBC Distribution Width CV 15.8 % (11.6-14.6); RBC Distribution Width SD 51.6 fl (35.1-43.9); Red Blood Count 2.96 M/mm3 (4.6-6.2); White Blood Count 17.1 K/mm3 (4.4-11.0)
[2018-03-17 05:36] LABS: POSITIVE COUNT NO; POSITIVE DIFFERENTIAL NO; POSITIVE MORPHOLOGY NO
[2018-03-17 05:37] LABS: Anion Gap 8 (5-15); BUN 12 mg/dL (7-18); BUN/Creat Ratio 17.3 RATIO (10-20); Calcium,Total 10.8 mg/dL (8.5-10.1); Chloride 109 mmol/L (98-107); Creatinine, Serum 0.69 mg/dL (0.70-1.30); EST Glomerular Filtration Rate 123 mL/min (>60); Est Glom Filt Rate - Afr Amer 148 mL/min (>60); Glucose 82 mg/dL (74-106); Potassium 3.3 mmol/L (3.5-5.1); Sodium Level 142 mmol/L (136-145)
[2018-03-17 06:59] VITALS: PULSE 102
[2018-03-17 07:52] VITALS: O2SAT 94
[2018-03-17] MEDS: Multivitamins,Ther W-Minerals Tablet 1 TABLET PO (07:52)
[2018-03-17 07:53] VITALS: O2SAT 94
--- NOTE | 2018-03-17 08:44 | PCM.PN.HOSP ---
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 (Acute) Pneumothorax (Acute) SYEDA (acute kidney injury) (Acute) Hypercalcemia of malignancy (Acute) Lung cancer (Acute) Subjective: NAD, ambulating and breathing easier Vitals/I&O's: Vital Signs Temp Pulse Resp BP Pulse Ox 98.4 F 102 H 14 134/75 H 94 03/17/18 03:35 03/17/18 06:59 03/17/18 03:35 03/17/18 03:35 03/17/18 07:53 Oxygen Flow Rate (L/min) 2 Oxygen Delivery Method Room Air Weight: 177 lb 7.554 oz Body Mass Index (BMI) 26.2 Intake and Output for Last 24 Hours 03/15/18 03/16/18 03/17/18 23:59 23:59 23:59 Intake Total 3872 / 3872 680 / 680 Balance 3872 / 3872 680 / 680 General: Alert, Oriented x3, Cooperative, No apparent distress HEENT: Atraumatic, EOMI, Normocephalic Oral: Moist Mucosa Neck: Supple, No JVD Lungs: Normal air movement, No rhonchi, No rales, Wheezes - slight throughout Cardiovascular: Regular rate, Regular Rhythm, Normal S1, Normal S2, No murmurs Abdomen: Soft, Non Tender, Non-Distended, No Hepato-splenomegaly Psych/Mental Status: Normal Affect, Appropriate Laboratory Results 03/17/18 05:15: WBC 17.1 H, RBC 2.96 L, Hgb 8.9 L, Hct 27.4 L, MCV 92.6, MCH 30.1, MCHC 32.5, RDW 15.8 H, RDW Differential 51.6 H, Plt Count 453 H, MPV 9.6, Immature Gran % (Auto) 0.200, Neut % (Auto) 81.2 H, Lymph % (Auto) 5.7 L, [place] % (Auto) 6.1, Eos % (Auto) 6.5 H, Baso % (Auto) 0.3, Absolute Neuts (auto) 13.9 H, Absolute Lymphs (auto) 0.98, Total Counted Not Reportable 03/17/18 05:15: Sodium 142, Potassium 3.3 L, Chloride 109 H, Carbon Dioxide 25.0, Anion Gap 8, BUN 12, Creatinine 0.69 L, Estim Creat Clear Calc 111.00, Est GFR (MDRD) Af Amer 148, Est GFR (MDRD) Non-Af 123, BUN/Creatinine Ratio 17.3, Glucose 82, Calcium 10.8 H Current Medications Acetaminophen (Tylenol) 500 mg PO TID [facility] Last Admin: 03/17/18 05:29 Dose: Not Given Docusate Sodium (Colace) 100 mg PO DAILY PRN PRN PRN Reason: Constipation Enoxaparin Sodium (Lovenox) 40 mg SC DAILY@1000 [facility] Last Admin: 03/16/18 09:49 Dose: 40 mg Heparin Sodium (Beef Lung) (Heparin 500 Unit/5 Ml (100/Ml)) 500 unit IV UD PRN PRN Reason: HEPARIN FLUSH Sodium Chloride () 1,000 mls @ 100 mls/hr IV .Q10H [facility] Last Admin: 03/17/18 02:17 Dose: 100 mls/hr Lidocaine/Prilocaine (Emla Cream W/Tegaderm) 30 gm TOPICAL DAILY PRN PRN PRN Reason: NOT SPECIFIED Magnesium Hydroxide (Milk Of Magnesia) 30 ml PO DAILY PRN PRN PRN Reason: Constipation Morphine Sulfate () 2 - 4 mg IV Q4H PRN PRN PRN Reason: MOD-SEVERE PAIN (4-10/10) Morphine Sulfate () 2 - 4 mg IV Q4H PRN PRN PRN Reason: MOD-SEVERE PAIN (4-10/10) Multivitamins/Minerals (Multivitamin With Minerals) 1 tablet PO DAILY@0800 [facility] Last Admin: 03/17/18 07:52 Dose: 1 tablet Nicotine (Nicoderm Cq (Pbkc)) 21 mg TRANSDERM. DAILY [facility] Last Admin: 03/16/18 09:49 Dose: 21 mg Ondansetron HCl (Zofran) 4 mg IV Q8H PRN PRN PRN Reason: NAUSEA Oxycodone HCl (Oxyir) 5 - 10 mg PO Q4H PRN PRN PRN Reason: MOD-SEVERE PAIN (4-10/10) Last Admin: 03/17/18 03:39 Dose: 10 mg Pantoprazole Sodium (Protonix) 20 mg PO DAILY [facility] Last Admin: 03/16/18 09:49 Dose: 20 mg Sertraline HCl (Zoloft) 25 mg PO DAILY [facility] Last Admin: 03/16/18 09:49 Dose: 25 mg Sodium Chloride () 10 ml IV UD PRN PRN Reason: VAD FLUSH Last Admin: 03/16/18 04:24 Dose: 10 ml Zolpidem Tartrate (Ambien (Generic)) 5 mg PO QHS PRN PRN PRN Reason: INSOMNIA Last Admin: 03/16/18 21:42 Dose: 5 mg Medical Necessity - Tobacco Use Smoking Status: Former smoker Tobacco Use: Non-smoker Assessment/Plan All Active Problems (Last Updated 03/15/18 @ 10:36 by Christin Antonio) Cancer of upper lobe of right lung (Acute) Regional lymph node metastasis present (Acute) Lung metastases (Acute) Hypercalcemia of malignancy (Acute) SYEDA (acute kidney injury) (Acute) Pneumothorax (Acute) Hypercalcemia (Acute) Pneumothorax of right lung after biopsy (Acute) 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 Stage 4 non-small cell lung cancer on the right/Malignant hypercalcemia/Post-procedure pneumothorax\ - He has had 2 biopsies to evaluate his lung mass, the initial biopsy did not obtain enough tissue - He is most recent biopsy was complicated with a 5-10% PTX - Hypercalcemia has decreased from 13 to 10 - Consult to heme/onc, appreciate recs - Will maintain on O2 and monitor PTX with f/u CXR, if remains stable today and tomorrow may be able to DC in am - C/w pain control with morphine PRN and percocet on DC 2. Leukocytosis/Anemia - Anemia is likely d/t cancer and recent procedures for his femur fracture - Elevated WBC likely related to recent procedural stress, he is afebrile and no obvious source of infection - Continue to monitor 3. GERD - stable - c/w PPI 4. Depression - Stable - c/w zoloft DVT: Lovenox Code: FULL Diet: Cardiac Dispo: DC today Code Visit OBSV E&M: 54478 Subsequent observation care L2
--- NOTE | 2018-03-17 09:09 | PCM.DC ---
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 Call your doctor if you observe: Shortness of breath, Chest pain, Increased palpitations (irregular heartbeat) Allergies/Adverse Reactions: Allergies No Known Allergies Allergy (Verified 03/15/18 19:17) Medications to take at Discharge Docusate Sodium [Colace] 100 mg PO DAILY PRN 02/22/18 Multivit-Minerals/FA/Lycopene [One Daily [employer] Tablet] 1 tab PO DAILY 02/22/18 Sertraline HCl [Zoloft] 25 mg PO DAILY 30 Days #30 tab 02/22/18 Acetaminophen [Tylenol] 500 mg PO TID 02/27/18 Omeprazole [Prilosec] 20 mg PO DAILY 02/27/18 Lidocaine/Prilocaine [Lidocaine-Prilocaine Cream] 30 gm TP DAILY PRN PRN #1 cream..g. 03/08/18 DiphenhydrAMINE [Benadryl] 50 mg PO QHS 03/16/18 Nicotine [Nicoderm Cq] 21 mg TRANSDERM. DAILY #30 patch 03/17/18 Oxycodone HCl/Acetaminophen [Percocet 5-325] 1 - 2 tab PO QHS #10 tablet 03/17/18 The following prescriptions were given: Nicotine [Nicoderm Cq] 21 mg TRANSDERM. DAILY #30 patch Oxycodone HCl/Acetaminophen [Percocet 5-325] 1 - 2 tab PO QHS #10 tablet Primary Care Physician: Reece Howe MD [Primary Care Provider] - Please follow up with your Primary Care Physician in: 3-5 days Test Results: Test results from this visit will be discussed in further detail at your follow-up appointment, if applicable. Please Follow Up With: Tresa Paulson MD Proposed Discharge Date: 03/17/18
[2018-03-17 09:16] VITALS: BP 128/82; PULSE 101; RESP 18; TEMP 37; O2SAT 96
[2018-03-17] MEDS: Sertraline 50 MG Tablet 25 MG PO (09:20)
[2018-03-17] MEDS: Pantoprazole Sodium 20 MG Tablet PO (09:20)
--- NOTE | 2018-03-17 17:31 | PCM.DC.SUM ---
Discharge Date and Diagnosis - Problem List Patient Problems: Active and Suspected Problems (Last Updated 03/16/18 @ 10:56 by Tresa Paulson MD) Cancer of upper lobe of right lung (Acute) Regional lymph node metastasis present (Acute) Lung metastases (Acute) Pneumothorax (Acute) SYEDA (acute kidney injury) (Acute) Hypercalcemia of malignancy (Acute) Lung cancer (Acute) Date of Admission: 03/15/18 Date of Discharge: 03/17/18 - Primary Discharge Diagnosis Active and Suspected Problems (Last Updated 03/16/18 @ 10:56 by Tresa Paulson MD) Cancer of upper lobe of right lung (Acute) Regional lymph node metastasis present (Acute) Lung metastases (Acute) Pneumothorax (Acute) SYEDA (acute kidney injury) (Acute) Hypercalcemia of malignancy (Acute) Lung cancer (Acute) - Secondary Discharge Diagnosis Chronic Problems (Last Updated 03/16/18 @ 10:56 by Tresa Paulson MD) Anemia (Chronic) Femoral fracture (Chronic) hemangioma Hospital Course and Treatment Imaging Results: CXR: IMPRESSION: Stable small right hydropneumothorax. Consultations: Oncology Operations: None Procedures: None Summary of Care Provided: HPI: The patient is a 62 year old M with a significant history former tobacco abuse; stage IV squamous cell carcinoma of the right lungs; and right femur fracture status post surgery with nails and screws; who presents with respiratory distress after biopsy of his right upper lung. In December 2017 patient had a spiral fracture of his right femur. Because of the spiral fracture of his right femur, cancer workup was initiated. An x-ray of his lungs, biopsy (on February 13, 2018) and further workup showed that he had a stage IV squamous cell lung cancer which was actually turned out not to be the cause of his right femur fracture. Rather his spiral fracture of the right femur was attributed to local bone hemangioma which was consequently resected. Subsequently he had hardware of nails and screws to fix his broken femur. His lung cancer is said to have spread to his mediastinal and lymph nodes. In regard to his lung cancer, his reports that it has spread to his mediastinum and lymph nodes; and patient is not a candidate of chemotherapy because of his history of right hip fracture. On March 14, 2018 patient had another biopsy of his right upper lung with the intent of determining whether he is a candidate for immunotherapy. After his second biopsy, a follow-up x-ray showed that he had 5% pneumothorax. The next day follow-up x-ray showed that patient has a 10% of a pneumothorax. Also an outpatient labs showed that patient had hypercalcemia with a calcium level of 14.5 Accordingly, his oncologist Dr. Paulson prescribed Zometa every 2 weeks and normal saline daily to treat his hypercalcemia due to malignancy. He has received a first dose of Zometa; and normal saline infusion was also started before this admission. Because of his right lung biopsy and pneumothorax, patient was instructed that if he has increased pain at the site of the biopsy or if he notices increased shortness of breath he should come to the emergency department. Because the patient experienced increased pain at the site of biopsy and increased shortness of breath with use of accessory muscles of breathing; patient came to the emergency department. At emergency department if his calcium level was 13.4; and his chest x-ray showed mild improvement of his pneumothorax compared to previous. Hospital Course: 1. Stage 4 non-small cell lung cancer on the right/Malignant hypercalcemia/Post-procedure pneumothorax - He presented after pleuritic chest pain necessitated a CXR after a lung biopsy. He was found to have a 10% PTX and was advised to present to the ER given his symptoms. His symptoms almost completely resolved on day of discharge. I ambulated Mr Stauffer on the morning of his discharge and he tolerated it well and did not have an increase in his symptoms. Repeat CXR was stable 10% PTX. Also prior to admission he was given zolendronic acid for his hypercalcemia of 13.4. He was also continued on IVF of 150cc/hr during his stay and by discharge his calcium was 10.8. I anticipate this will further decrease and he has labs pending for tuesday for further evaluation. He is to continue with his home pain meds which were refilled for 5 days 2. His other diagnoses were evaluated and his home medications were continued where appropriate. Discharge Activity: Return to Normal Activity, May not drive while taking narcotic pain medications. Call your doctor if you observe: Shortness of breath, Chest pain, Increased palpitations (irregular heartbeat) Home Medications: Medications to take at Discharge Docusate Sodium [Colace] 100 mg PO DAILY PRN 02/22/18 Multivit-Minerals/FA/Lycopene [One Daily [employer] Tablet] 1 tab PO DAILY 02/22/18 Sertraline HCl [Zoloft] 25 mg PO DAILY 30 Days #30 tab 02/22/18 Acetaminophen [Tylenol] 500 mg PO TID 02/27/18 Omeprazole [Prilosec] 20 mg PO DAILY 02/27/18 Lidocaine/Prilocaine [Lidocaine-Prilocaine Cream] 30 gm TP DAILY PRN PRN #1 cream..g. 03/08/18 DiphenhydrAMINE [Benadryl] 50 mg PO QHS 03/16/18 Nicotine [Nicoderm Cq] 21 mg TRANSDERM. DAILY #30 patch 03/17/18 Oxycodone HCl/Acetaminophen [Percocet 5-325] 1 - 2 tab PO QHS #10 tablet 03/17/18 Following Prescrptions Were Given to Patient: Nicotine [Nicoderm Cq] 21 mg TRANSDERM. DAILY #30 patch Oxycodone HCl/Acetaminophen [Percocet 5-325] 1 - 2 tab PO QHS #10 tablet Primary Care Physician: Reece Howe MD [Primary Care Provider] - Please follow up with your Primary Care Physician in: 3-5 days Please Follow Up With: Tresa Paulson MD Disposition: Home Minutes spent on discharge:: 37 Patient Condition:: Good Medical Necessity - Tobacco Use Smoking Status: Former smoker Tobacco Use: Non-smoker Meaningful Use Info Meaningful Use Diagnoses (Choose all that apply): None applicable Code Visit Inpatient E&M: 46478 Disch Hosp
== END 2018-03-17 09:10 | disposition home or self-care (01) ==
LOC: ED 19:51 → PCU 23:00
PROVIDERS: Admitting Provider Hospitalist; Emergency Provider Emergency Medicine; Family Provider Family Medicine; PCP Family Medicine; Visit Provider Family Medicine
DX: C34.11 Malignant neoplasm of upper lobe, right bronchus or lung (principal); C77.9 Secondary and unspecified malignant neoplasm of lymph node, unspecified; C78.1 Secondary malignant neoplasm of mediastinum; R06.03 Acute respiratory distress; J95.811 Postprocedural pneumothorax; Y83.8 Other surgical procedures as the cause of abnormal reaction of the patient, or of later complication, without mention of misadventure at the time of the procedure; E83.52 Hypercalcemia; D64.9 Anemia, unspecified; F32.9 Major depressive disorder, single episode, unspecified; J44.9 Chronic obstructive pulmonary disease, unspecified; Z79.899 Other long term (current) drug therapy; Z87.891 Personal history of nicotine dependence; K21.9 Gastro-esophageal reflux disease without esophagitis; N17.9 Acute kidney failure, unspecified
CPT/HCPCS: 71046; 80048; 85025; 85027; 96361; 96374; 96375; 97163; 97166; 97802; 99218; 99251; 99282; J7030; A4216; G0378; G0463

== ENCOUNTER → 2018-04-04 14:13 | Outpatient (CLI) | payer OTHER, SELFPAY | PROVIDERS: Family Provider Family Medicine; PCP Family Medicine; Visit Provider Internal Medicine Hematology & Oncology | DX: J95.811 Postprocedural pneumothorax (principal); J93.9 Pneumothorax, unspecified; C34.11 Malignant neoplasm of upper lobe, right bronchus or lung; Z79.899 Other long term (current) drug therapy | CPT/HCPCS: 71046 ==

== ENCOUNTER → 2018-04-14 12:55 | Outpatient (CLI) | payer OTHER, SELFPAY ==
--- NOTE | 2018-04-14 12:56 | ECHOD_ITS ---
Reason For Study: CHEST PAIN Procedure This was a 2D Doppler, Color Flow transthoracic echocardiogram. Myocardial strain analysis was performed in this exam to aid in the assessment of cardiac function. Due to technically difficult images- basal portion of septal and posterior wall did not track well with strain analysis. The study was technically difficult. Exam performed in department. Left Ventricle Normal size and thickness. The estimated ejection fraction is 65 %. Normal diastology for age. No regional wall motion abnormalities noted. Right Ventricle Moderately dilated right ventricle. Normal systolic function. Atria Normal left atrium. Normal right atrium. Normal atrial septum. Mitral Valve The mitral valve is structurally normal. No prolapse or stenosis seen. Trivial mitral valve insufficiency. Tricuspid Valve Normal tricuspid valve. Trivial tricuspid valve insufficiency. Right ventricular systolic pressure estimated to be 27 mmHg. Aortic Valve Trisinus/trileaflet aortic valve. Mild focal aortic valve thickening. There is no aortic stenosis. Pulmonic Valve Normal pulmonic valve. Great Vessels Normal aortic root. Normal arch. Normal inferior vena cava. Inferior vena cava collapse with sniff. Pericardium/Pleural No pericardial effusion. MMode/2D Measurements & Calculations LVIDd: 5.0 cm IVSd: 0.97 cm Ao root diam: 3.4 cm LVIDs: 3.1 cm LVPWd: 1.1 cm LA dimension: 3.1 cm RVDd: 4.1 cm FS: 36.9 % LAV(MOD-bp): 51.9 ml LVAd ap4: 38.0 cm2 SV(MOD-sp4): 74.7 ml LAV(MOD-bp) Indexed: 27.6 ml/m2 EDV(MOD-sp4): 131.0 ml LAV(MOD-sp2): 50.3 ml EDV(sp4-el): 129.8 ml LAV(MOD-sp4): 52.2 ml LVAs ap4: 22.0 cm2 ESV(MOD-sp4): 56.3 ml ESV(sp4-el): 53.8 ml EF(MOD-sp4): 57.0 % EF(sp4-el): 58.5 % SV(sp4-el): 76.0 ml LA A4 area: 18.0 cm2 RA A4 area: 18.0 cm2 Time Measurements MV dec time: 0.19 sec Doppler Measurements & Calculations MV E max madan: 61.2 cm/sec Lat Peak E' Madan: 15.6 cm/sec Med Peak E' Madan: 9.7 cm/sec MV A max madan: 95.0 cm/sec E/E' lat: 3.9 E/E' med: 6.3 MV E/A: 0.64 Ao V2 max: 147.4 cm/sec LV V1 max: 130.7 cm/sec PA V2 max: 96.5 cm/sec Ao max P.7 mmHg LV V1 max P.8 mmHg TR max madan: 237.0 cm/sec TR max P.5 mmHg Interpretation Summary The estimated ejection fraction is 65 %. Normal diastology for age. Moderately dilated right ventricle. Trivial mitral valve insufficiency. Trivial tricuspid valve insufficiency. Right ventricular systolic pressure estimated to be 27 mmHg. There is no comparison study available. Ordering Physician: Dewayne Delong Referring Physician: CHIKA FRY Performed By: Kristy Nuno RDCS, RVT
== END ==
PROVIDERS: Family Provider Family Medicine; PCP Family Medicine; Visit Provider Internal Medicine Cardiovascular Disease
DX: R07.9 Chest pain, unspecified (principal)
CPT/HCPCS: 93306

== ENCOUNTER → 2018-04-19 12:14 | Outpatient (CLI) | payer OTHER, SELFPAY ==
--- NOTE | 2018-04-19 12:16 | STE_ITS ---
Reason For Study: Chest Pain Stress Results Protocol: Dobutamine Stress Echo Maximum Predicted HR: 158 bpm Target HR: 134 bpm% Maximum Pre dicted HR: 86 % DurationHeart Rate Stage (mm:ss) (bpm) BPCom ment Baseline 93 117/71 No Chest Pain DSE 10 MCG 3:28 92 102/52No Chest Pain DSE 20 MCG 3:00 11 8 97/60No Chest Pain DSE 30 MCG 4:09 13 6 118/59No Chest Pain Recovery 105 101/5 6No Chest Pain Stress Duration: 10:37 mm:ss Maximum Stress HR: 136 bpmME TS: 1 Baseline Echocardiogram Findings The estimated ejection fraction is 65 %. Stress Echo Wall motion Data Resting WMIntermediate WMStress WM Resting Wall Motion Wall Motion Stress No regional wall motion Infero-Basal: Mildly hypokinetic. abnormalities noted. Posterior-Basal: Mildly hypokinetic. EKG Data Normal intervals are noted. The patient was titrated from 10 mcg to a maximun of 30 mcg of dobutamine during the stress. The maximum heart rate attained was 137 beats per minute. This was 86% of maximum predicted heart rate. During dobutamine infusion, there were no ST or T wave changes noted to suggest ischemia. No clinical angina was noted. No arrhythmias noted. Interpretation Summary The estimated ejection fraction is 65 %. Infero-Basal: Mildly hypokinetic Posterior-Basal: Mildly hypokinetic The patient was titrated from 10 mcg to a maximun of 30 mcg of dobutamine during the stress. Abnormal, adequate, dobutamine echocardiogram. Positive for ischemia by echocardiographic criteria. Patient appeared to develop inferior posterior hypokinesis seen in the apical 2 chamber view. No anginal symptoms noted. No arrhythmias noted. Appropriate blood pressure response to dobutamine. Test terminated due to target heart rate achieved. Final LVEF of 55%. Ordering Physician: Dewayne Delong Referring Physician: Dewayne Delong Performed By: Dk, Verónica, RDCS
== END ==
PROVIDERS: Family Provider Family Medicine; PCP Family Medicine; Visit Provider Internal Medicine Cardiovascular Disease
DX: R07.9 Chest pain, unspecified (principal); C34.11 Malignant neoplasm of upper lobe, right bronchus or lung; C77.9 Secondary and unspecified malignant neoplasm of lymph node, unspecified; C78.00 Secondary malignant neoplasm of unspecified lung; D64.9 Anemia, unspecified; J44.9 Chronic obstructive pulmonary disease, unspecified
CPT/HCPCS: 93017; 93350; J7030; A4216

== ENCOUNTER 2018-04-24 20:34 | Inpatient (IN) | payer OTHER, SELFPAY ==
[2018-04-24] VITALS (8 sets, daily range): BP systolic 96–119; BP diastolic 61–92; PULSE 99–112; RESP 16–21; TEMP 36.8; O2SAT 88–98; BMI 22.8
--- NOTE | 2018-04-24 21:55 | EKG12_ITS ---
Test Reason : SOB Blood Pressure : / mmHG Vent. Rate : 104 BPM Atrial Rate : 104 BPM P-R Int : 172 ms QRS Dur : 120 ms QT Int : 350 ms P-R-T Axes : 092 062 038 degrees QTc Int : 460 ms Sinus tachycardia Abnormal ECG Confirmed by THOR SILVA MD ([id number]), film editor supervisor DEYVI JAMISON ([id number]) on 04/26/2018 9:30:28 AM Referred By: ERICKA Confirmed By:THOR SILVA MD
[2018-04-24] MEDS: predniSONE 20 MG Tablet 60 MG PO (22:05)
[2018-04-24] MEDS: Ipratropium/Albuterol Sulfate 3 ML AMPUL.NEB INHALATION (22:27)
--- NOTE | 2018-04-24 22:40 | RAD_ITS ---
STUDY: X-RAY CHEST REASON FOR EXAM: Male, 62 years old. Shortness of breath. Lung cancer. Previous pneumothorax TECHNIQUE: Frontal and lateral views of the chest. COMPARISON: 04/04/2018. FINDINGS: Right Mediport catheter terminates in the mid SVC. There is hyperexpansion of both lungs. No evidence for pneumothorax. Increasing density in the lower right lung consistent with pleural effusion and atelectasis or infiltrate. Widespread nodular densities of both lungs system with metastatic disease. Normal size heart. Normal mediastinum and barbara. Normal visualized pulmonary arteries. Normal visualized aortic arch and descending thoracic aorta. There are diffuse degenerative changes of the visualized thoracic spine. Normal visualized ribs, clavicles, and shoulders. There is no demonstrated abnormality of the visualized soft tissue structures of the upper abdomen. RAD/Chest PA and Lateral IMPRESSION: No evidence for pneumothorax. Increasing density of the lower right lung consistent with worsening of pleural effusion along with underlying atelectasis or infiltrate. Widespread metastatic disease. Electronically Signed: Zay Chua MD at 23:00 EDT , Service support ,
[2018-04-24 22:44] LABS: Absolute Lymphocyte Count 1.04 X10^3/ul (0.83-4.51); Absolute Neutrophil Count 22.9 X10^3/uL (2.0-7.7); Basophil# 0.02 X10^3/uL; Basophil% 0.1 % (0-1); Differential Indicated SCAN CRITERIA MET; Eosinophil# 0.03 X10^3/uL; Eosinophils% 0.1 % (0-5); Hematocrit 22.3 % (40-54); Hemoglobin 7.1 g/dl (13.0-16.5); Lymphocyte # 1.04 X10^3/ul (4.0); Lymphocyte % 4.2 % (19-41); Mean Corp Hgb Conc 31.8 g/gl (32-36); Mean Corpuscular Hgb 29.1 pg (27.0-32.0); Mean Corpuscular Volume 91.4 fL (80-94); Mean Platelet Vol. 9.2 fl (6.2-12.0); Monocyte# 0.45 X10^3/uL; Monocyte% 1.8 % (0-10); Neutrophil # 22.89 X10^3/uL (2.7-7.7); Neutrophil % 92.6 % (47-70); POSITIVE COUNT NO; POSITIVE DIFFERENTIAL YES; POSITIVE MORPHOLOGY YES; Platelet Count 247 K/mm3 (150-450); RBC Distribution Width CV 15.9 % (11.6-14.6); RBC Distribution Width SD 52.5 fl (35.1-43.9); Red Blood Count 2.44 M/mm3 (4.6-6.2); White Blood Count 24.7 K/mm3 (4.4-11.0)
[2018-04-24 22:49] LABS: Anion Gap 7 (5-15); BUN 13 mg/dL (7-18); BUN/Creat Ratio 16.9 RATIO (10-20); Calcium,Total 10.3 mg/dL (8.5-10.1); Chloride 99 mmol/L (98-107); Creatinine, Serum 0.77 mg/dL (0.70-1.30); EST Glomerular Filtration Rate 109 mL/min (>60); Est Glom Filt Rate - Afr Amer 132 mL/min (>60); Estimated Creatinine Clearance 98.92 ml/min; Glucose 113 mg/dL (74-106); Potassium 3.4 mmol/L (3.5-5.1); Sodium Level 133 mmol/L (136-145)
[2018-04-24 22:56] LABS: Differential Comment SCANNED
--- NOTE | 2018-04-24 23:30 | ED.VISSUMM ---
- ER Visit Summary Date of Service: 04/24/18 Chief Complaint: Shortness of breath History of Present Illness: The patient is a 62 M who presents with shortness of breath that began yesterday. Patient states it has gradually gotten worse. Patient states he has a cough with some white sputum. Patient denies any fevers. Patient admits to some dull right-sided chest pain. Patient had recent chemotherapy. Patient had a Neulasta injection 3 days ago. Patient also admits to some mild rhinorrhea. Patient denies any nausea or vomiting. Physical Examination: Vital signs are stable except for mild tachycardia of 111. Patient is afebrile. Patient is in no acute distress. Oral mucosa is pink and moist. Neck is supple. Trachea is midline. There is no JVD noted. Heart was regular and tachycardic. Lungs showed diffuse expiratory wheezing. There is good respiratory effort noted. There are no retractions noted. Abdomen is soft and nontender. Cranial nerves II through XII are intact. There are no focal motor or sensory deficits noted. The remaining physical exam is within normal limits. Test Results: EKG showed normal sinus rhythm with a rate of 104. There are no acute ST or T wave changes. PA and lateral chest x-ray showed increased markings in the right lower lobe consistent with worsening effusion, atelectasis, or infiltrate. CBC shows a leukocytosis of 24.7. Hemoglobin was 7.1 and hematocrit was 22.3. Troponin was indeterminate at 0.053. Emergency Department Course and Treatment: Patient was given a DuoNeb aerosol here. Patient was started on Zosyn and vancomycin. Case was discussed with Dr. Gabriel, hospitalist. He will admit the patient to his service. Patient and family understand and are agreeable with the plan. All questions were answered. Disposition: Admit to hospital Impression: 1. Healthcare associated pneumonia 2. Anemia 3. History of lung cancer This note was generated with [employer] dictation software. 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
--- NOTE | 2018-04-24 23:31 | PCM.HP.STD ---
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 He states he has had two rounds of chemo and this week he is taking a break and got a dose of Neulasta. The patient is full code status. CXR shows worsening right lower pleural effusion and infiltrate. He was hospitalized 5 weeks ago and is undergoing chemotherapy. Initial SPo2 was 88% without oxygen applied and the patient was actively short of breath. The patient is more comfortable on oxygen therapy and will be admitted for management of pneumonia. 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 (Chronic) history of port-a-cath insertion (Chronic) 02/28/18 Depression (Chronic) Femoral fracture (Chronic) hemangioma Medical History: Medical History (Last Reviewed 04/13/18 @ 12:57 by Christin Antonio) Chest pain (Acute) R07.9 Pneumothorax (Acute) J93.9 SYEDA (acute kidney injury) (Acute) N17.9 Hypercalcemia of malignancy (Acute) E83.52 Lung cancer (Acute) C34.90 Depression (Acute) F32.9 COPD (chronic obstructive pulmonary disease) (Acute) J44.9 Femoral fracture (Chronic) S72.90XA hemangioma Lung mass R91.8 RIGHT UPPER LOBE SQUAMOUS CELL CARCINOMA Allergies No Known Allergies Allergy (Verified 04/24/18 20:38) Home Medications: Ambulatory Orders Medication Instructions Recorded Omeprazole [Prilosec] 20 mg PO DAILY 02/27/18 DiphenhydrAMINE [Benadryl] 50 mg PO QHS 03/16/18 Nicotine [Nicoderm Cq] 21 mg TRANSDERM. DAILY #30 patch 03/17/18 Lidocaine/Prilocaine 30 gm TP DAILY PRN PRN #1 cream..g. 03/23/18 [Lidocaine-Prilocaine Cream] Ondansetron HCl [Zofran] 4 mg PO Q8H PRN PRN #30 tab 03/23/18 Metoclopramide [Reglan] 10 mg PO 4X/DAY 30 Days #120 tab 03/28/18 Sertraline HCl [Zoloft] 50 mg PO DAILY #60 tab 03/28/18 Oxycodone HCl/Acetaminophen 1 - 2 tablet PO TID PRN 04/24/18 [Percocet 5-325] Surgical History: Surgical History (Last Reviewed 04/13/18 @ 12:57 by Christin Antonio) history of port-a-cath insertion (Acute) 02/28/18 History of bronchoscopy (Acute) Z98.890 History of lung biopsy Z98.890 03/14/18 [facility] Surgical History: - Smoking Status: Former smoker - *Family History Maternal Family History: Family History (Last Reviewed 04/20/18 @ 13:31 by Florence Smith) Brother Kidney disease Hypertension Mother CHF (congestive heart failure) History Items: No pertinent history Review of Systems Constitutional: Denies: Chills, Fever, Weight Change HEENT: Denies: Head Aches, Sinus Congestion, Sinus Drainage Cardiovascular: Denies: Chest Pain, Palpitations Respiratory: Reports: Cough, Pleuritic Pain, Shortness of breath at rest, Wheezing. Denies: Sputum production Gastrointestinal: Denies: Abdominal Pain, Nausea, Vomiting Genitourinary: Denies: Dysuria Musculoskeletal: Denies: Joint Pain, Joint Tenderness Skin: Denies: Rash, Wounds Neurological: Denies: Numbness, Tingling, Focal weakness Psychiatric: Denies: Anxiety, Depression, Homicidal Ideations, Suicidal Ideations Hematologic/ Lymphatic: Denies: Easy Bruising, Easy Bleeding VTE Information - Inpt Only VTE Present on Admission: No VTE Mechan Device Prophylaxis: None VTE Pharm Prophylaxis ordered?: Yes Patient Problems: Active and Suspected Problems (Last Reviewed 04/13/18 @ 12:57 by Christin Antonio) HCAP (healthcare-associated pneumonia) (Acute) - Physical Exam General: Alert, Oriented x3, Cooperative HEENT: Atraumatic, Normocephalic Neck: Supple Lungs: No rhonchi, No rales, Diminished, Wheezes Cardiovascular: Regular rate, Normal S1, Normal S2, No murmurs Abdomen: Bowel Sounds Present, Soft, Non Tender Extremities: No edema, Capillary Refill Less than 3 Seconds Skin: No rashes Musculoskeletal: No Tenderness to Palpation of Joints or Extremities Neurological: Neuro grossly intact Psych/Mental Status: Normal Affect, Appropriate Vital Signs Temp Pulse Resp BP Pulse Ox 98.3 F 100 21 H 116/72 97 04/24/18 20:36 04/24/18 23:25 04/24/18 23:25 04/24/18 23:25 04/24/18 23:25 Oxygen Flow Rate (L/min) 2 Oxygen Delivery Method Nasal Cannula Weight: 155 lb Body Mass Index (BMI) 22.8 Laboratory Tests Past 24 Hrs 04/24/18 04/24/18 22:25 22:25 WBC 24.7 H RBC 2.44 L Hgb 7.1 L Hct 22.3 L MCV 91.4 MCH 29.1 MCHC 31.8 L RDW 15.9 H RDW Differential 52.5 H Plt Count 247 MPV 9.2 Immature Gran % (Auto) 1.200 H Neut % (Auto) 92.6 H Lymph % (Auto) 4.2 L Rooks % (Auto) 1.8 Eos % (Auto) 0.1 Baso % (Auto) 0.1 Absolute Neuts (auto) 22.9 H Absolute Lymphs (auto) 1.04 Total Counted Not Reportable Differential Comment SCANNED Sodium 133 L Potassium 3.4 L Chloride 99 Carbon Dioxide 27.0 Anion Gap 7 BUN 13 Creatinine 0.77 Estim Creat Clear Calc 98.92 Est GFR (MDRD) Af Amer 132 Est GFR (MDRD) Non-Af 109 BUN/Creatinine Ratio 16.9 Glucose 113 H Calcium 10.3 H Troponin I 0.053 H Assessment/Plan All Active Problems (Last Reviewed 04/13/18 @ 12:57 by Christin Antonio) Chemotherapy management, encounter for (Acute) HCAP (healthcare-associated pneumonia) (Acute) SYEDA (acute kidney injury) (Resolved) Pneumothorax (Acute) Hypercalcemia (Acute) Pneumothorax of right lung after biopsy (Acute) Pneumothorax (Acute) SYEDA (acute kidney injury) (Acute) Hypercalcemia of malignancy (Acute) Lung cancer (Acute) COPD (chronic obstructive pulmonary disease) (Acute) History of bronchoscopy (Acute) Chronic Problems (Last Reviewed 04/13/18 @ 12:57 by Christin Antonio) Chest pain (Chronic) Cancer of upper lobe of right lung (Chronic) Regional lymph node metastasis present (Chronic) Lung metastases (Chronic) Hypercalcemia of malignancy (Chronic) Anemia (Chronic) 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
--- NOTE | 2018-04-24 23:34 | ED.DCSUM_ITS ---
- ER Visit Summary Date of Service: 04/24/18 Chief Complaint: Shortness of breath History of Present Illness: The patient is a 62 M who presents with shortness of breath that began yesterday. Patient states it has gradually gotten worse. Patient states he has a cough with some white sputum. Patient denies any fevers. Patient admits to some dull right-sided chest pain. Patient had recent chemotherapy. Patient had a Neulasta injection 3 days ago. Patient also admits to some mild rhinorrhea. Patient denies any nausea or vomiting. Physical Examination: Vital signs are stable except for mild tachycardia of 111. Patient is afebrile. Patient is in no acute distress. Oral mucosa is pink and moist. Neck is supple. Trachea is midline. There is no JVD noted. Heart was regular and tachycardic. Lungs showed diffuse expiratory wheezing. There is good respiratory effort noted. There are no retractions noted. Abdomen is soft and nontender. Cranial nerves II through XII are intact. There are no focal motor or sensory deficits noted. The remaining physical exam is within normal limits. Test Results: EKG showed normal sinus rhythm with a rate of 104. There are no acute ST or T wave changes. PA and lateral chest x-ray showed increased markings in the right lower lobe consistent with worsening effusion, atelectasis , or infiltrate. CBC shows a leukocytosis of 24.7. Hemoglobin was 7.1 and hematocrit was 22.3. Troponin was indeterminate at 0.053. Emergency Department Course and Treatment: Patient was given a DuoNeb aerosol here. Patient was started on Zosyn and vancomycin. Case was discussed with Dr. Gabriel, hospitalist. He will admit the patient to his service. Patient and family understand and are agreeable with the plan. All questions were answered. Disposition: Admit to hospital Impression: 1. Healthcare associated pneumonia 2. Anemia 3. History of lung cancer This note was generated with [employer] dictation software. 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
[2018-04-25] VITALS (14 sets, daily range): BP systolic 106–118; BP diastolic 69–74; PULSE 84–106; RESP 16–22; TEMP 36.6–37.3; O2SAT 93–97; BMI 22.8; BMI 22.9
--- NOTE | 2018-04-25 00:45 | NURSING ---
Pt. refusing flu shot, currently receiving Chemo.
[2018-04-25] MEDS: DiphenhydrAMINE 25 MG Capsule 50 MG PO ×2 (01:10→22:54)
[2018-04-25] MEDS: Sertraline 50 MG Tablet PO ×2 (01:10→22:55)
[2018-04-25] MEDS: Metoclopramide 10 MG Tablet PO ×5 (01:10→22:55)
[2018-04-25] MEDS: Vancomycin IV 1,000 MG/200 ML BAG 200 MG IV ×2 (01:16→11:59)
[2018-04-25] MEDS: oxyCODONE 5 MG Tablet PO ×3 (01:16→20:00)
--- NOTE | 2018-04-25 01:21 | PCM.RX.CS ---
Consult Pharmacy has been consulted to manage selected antiobiotic: Vancomycin Type of Consult: New start Suspected Infection: Pneumonia Prior Doses of Antibiotics Received/Current Regimen: Medications Vancomycin HCl (Vancomycin) 1,000 mg in 200 mls @ 200 mls/hr IV Q12H ANIL Discontinued Medications Vancomycin HCl (Vancomycin) 1,000 mg in 200 mls @ 200 mls/hr IV X1 ONE Stop: 04/25/18 00:39 Last Admin: 04/25/18 01:16 Dose: 200 mls/hr Labs: Sodium 133 mmol/L (136-145) L 04/24/18 22:25 Potassium 3.4 mmol/L (3.5-5.1) L 04/24/18 22:25 Chloride 99 mmol/L (98-107) 04/24/18 22:25 Carbon Dioxide 27.0 mmol/L (21.0-32.0) 04/24/18 22:25 Anion Gap 7 (5-15) 04/24/18 22:25 BUN 13 mg/dL (7-18) 04/24/18 22:25 Creatinine 0.77 mg/dL (0.70-1.30) 04/24/18 22:25 Est GFR (MDRD) Af Amer 132 mL/min (>60) 04/24/18 22:25 Est GFR (MDRD) Non-Af 109 mL/min (>60) 04/24/18 22:25 BUN/Creatinine Ratio 16.9 RATIO (10-20) 04/24/18 22:25 Glucose 113 mg/dL (74-106) H 04/24/18 22:25 Weight used for dosin.3 kg Estimated Creatinine Clearance: 99 Goal Trough: 10-15 mcg/mL Pharmacy Plan for Drug Dosing: Pharmacy Service will continue to monitor and adjust dosing as required. Follow-Up Labs: Trough Vancomycin Labs to be done on [date and time ordered]: 04/26/18 @1230
[2018-04-25] MEDS: Piperacil/Tazobactam 3.375 GM/50 ML ML IV ×3 (06:29→22:53)
[2018-04-25 06:36] LABS: Anion Gap 6 (5-15); BUN 10 mg/dL (7-18); Calcium,Total 10.2 mg/dL (8.5-10.1); Chloride 99 mmol/L (98-107); Creatinine, Serum 0.63 mg/dL (0.70-1.30); EST Glomerular Filtration Rate 138 mL/min (>60); Est Glom Filt Rate - Afr Amer 167 mL/min (>60); Glucose 138 mg/dL (74-106); Potassium 3.9 mmol/L (3.5-5.1); Sodium Level 134 mmol/L (136-145)
[2018-04-25 07:04] LABS: Absolute Lymphocyte Count 0.56 X10^3/ul (0.83-4.51); Absolute Neutrophil Count 22.9 X10^3/uL (2.0-7.7); Basophil# 0.01 X10^3/uL; Hematocrit 22.6 % (40-54); Hemoglobin 7.5 g/dl (13.0-16.5); Lymphocyte # 0.56 X10^3/ul (4.0); Lymphocyte % 2.3 % (19-41); Mean Corp Hgb Conc 33.2 g/gl (32-36); Mean Corpuscular Volume 93.4 fL (80-94); Mean Platelet Vol. 9.4 fl (6.2-12.0); Monocyte# 0.47 X10^3/uL; Monocyte% 1.9 % (0-10); Neutrophil # 22.89 X10^3/uL (2.7-7.7); Neutrophil % 94.8 % (47-70); Platelet Count 253 K/mm3 (150-450); RBC Distribution Width CV 15.5 % (11.6-14.6); Red Blood Count 2.42 M/mm3 (4.6-6.2); White Blood Count 24.2 K/mm3 (4.4-11.0)
[2018-04-25 07:08] LABS: Differential Indicated SCAN CRITERIA MET; POSITIVE COUNT NO; POSITIVE DIFFERENTIAL YES; POSITIVE MORPHOLOGY YES
[2018-04-25] MEDS: Ipratropium/Albuterol Sulfate 3 ML AMPUL.NEB INHALATION ×5 (07:44→23:08)
--- NOTE | 2018-04-25 07:59 | PN_ITS ---
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 WBC count remains elevated at 24K Objective: GENERAL: cooperative HEENT: Clear conjunctiva, NECK; supple, normal thyroid, CHEST: Diminished to auscultation bilaterally, HEART: Regular S1 S2, no audible murmurs ABDOMEN: soft, non-tender, normoactive bowel sounds, RECTAL: deferred EXTREMITIES: No edema, no clubbing, no cyanosis. GEOSCIENTIST: Awake; no lateralizing signs. SKIN: No Rash Vitals/I&O's: Vital Signs Temp Pulse Resp BP Pulse Ox 97.8 F 93 16 106/69 96 04/25/18 06:00 04/25/18 06:00 04/25/18 06:00 04/25/18 06:00 04/25/18 06:13 Oxygen Flow Rate (L/min) 2 Oxygen Delivery Method Nasal Cannula Weight: 70.307 kg Body Mass Index (BMI) 22.8 Intake and Output for Last 24 Hours 04/23/18 04/24/18 04/25/18 23:59 23:59 23:59 Intake Total 475 / 475 Balance 475 / 475 Laboratory Results 04/24/18 22:25: WBC 24.7 H, RBC 2.44 L, Hgb 7.1 L, Hct 22.3 L, MCV 91.4, MCH 29.1, MCHC 31.8 L, RDW 15.9 H, RDW Differential 52.5 H, Plt Count 247, MPV 9.2, Immature Gran % (Auto) 1.200 H, Neut % (Auto) 92.6 H, Lymph % (Auto) 4.2 L, Lyman % (Auto) 1.8, Eos % (Auto) 0.1, Baso % (Auto) 0.1, Absolute Neuts (auto) 22.9 H, Absolute Lymphs (auto) 1.04, Total Counted Not Reportable, Differential Comment SCANNED 04/24/18 22:25: Sodium 133 L, Potassium 3.4 L, Chloride 99, Carbon Dioxide 27.0, Anion Gap 7, BUN 13, Creatinine 0.77, Estim Creat Clear Calc 98.92, Est GFR (MDRD) Af Amer 132, Est GFR (MDRD) Non-Af 109, BUN/Creatinine Ratio 16.9, Glucose 113 H, Calcium 10.3 H, Troponin I 0.053 H 04/25/18 06:05: WBC 24.2 H, RBC 2.42 L, Hgb 7.5 L, Hct 22.6 L, MCV 93.4, MCH 31.0, MCHC 33.2, RDW 15.5 H, RDW Differential 49.0 H, Plt Count 253, MPV 9.4, Immature Gran % (Auto) 1.000 H, Neut % (Auto) 94.8 H, Lymph % (Auto) 2.3 L, Lyman % (Auto) 1.9, Eos % (Auto) 0.0, Baso % (Auto) 0.0, Absolute Neuts (auto) 22.9 H, Absolute Lymphs (auto) 0.56 L, Total Counted Not Reportable, Differential Comment COMMENT 04/25/18 06:05: Sodium 134 L, Potassium 3.9, Chloride 99, Carbon Dioxide 29.0, Anion Gap 6, BUN 10, Creatinine 0.63 L, Estim Creat Clear Calc 120.90, Est GFR (MDRD) Af Amer 167, Est GFR (MDRD) Non-Af 138, BUN/Creatinine Ratio 16.0, Glucose 138 H, Calcium 10.2 H Current Medications Albuterol/Ipratropium (Duoneb) 3 ml INHALATION Q4H.RT ANIL Diphenhydramine HCl (Benadryl) 50 mg PO QHS [facility] Last Admin: 04/25/18 01:10 Dose: 50 mg Enoxaparin Sodium (Lovenox) 40 mg SC DAILY@1000 ANIL Heparin Sodium (Beef Lung) (Heparin 500 Unit/5 Ml (100/Ml)) 500 unit IV UD PRN PRN Reason: HEPARIN FLUSH Piperacillin Sod/Tazobactam Sod (Zosyn) 3.375 gm in 50 mls @ 12.5 mls/hr IV Q8 [facility] Last Admin: 04/25/18 06:29 Dose: 12.5 mls/hr Vancomycin IV Pharmacy to Dose (1 ea/ Sodium Chloride) 500 mls @ 250 mls/hr IV X1 PRN; Protocol PRN Reason: Rx to Dose Vancomycin HCl (Vancomycin) 1,000 mg in 200 mls @ 200 mls/hr IV Q12H ANIL Lidocaine/Prilocaine (Emla Cream W/Tegaderm) 30 gm TOPICAL DAILY PRN PRN PRN Reason: NOT SPECIFIED Loratadine (Claritin) 10 mg PO QHS ANIL Magnesium Hydroxide (Milk Of Magnesia) 30 ml PO DAILY PRN PRN PRN Reason: Constipation Methylprednisolone (Solu-Medrol) 40 mg IV Q8 [facility] Last Admin: 04/25/18 06:28 Dose: 40 mg Metoclopramide HCl (Reglan) 10 mg PO 0700,1100,1600,2200 [facility] Last Admin: 04/25/18 06:29 Dose: 10 mg Nicotine (Nicoderm Cq (Pbkc)) 21 mg TRANSDERM. DAILY [facility] Last Admin: 04/25/18 01:10 Dose: 21 mg Ondansetron HCl (Zofran Odt) 4 mg PO Q8H PRN PRN PRN Reason: NAUSEA Oxycodone HCl (Oxyir) 5 - 10 mg PO TID PRN PRN PRN Reason: PAIN Last Admin: 04/25/18 01:16 Dose: 5 mg Pantoprazole Sodium (Protonix) 20 mg PO DAILY ANIL Sertraline HCl (Zoloft) 50 mg PO QHS [facility] Sodium Chloride () 5 - 30 ml IV UD PRN PRN Reason: SALINE FLUSH Sodium Chloride () 10 ml IV UD PRN PRN Reason: VAD FLUSH Medical Necessity - Tobacco Use Smoking Status: Former smoker Assessment/Plan All Active Problems (Last Reviewed 04/13/18 @ 12:57 by Christin Antonio) Chemotherapy management, encounter for (Acute) HCAP (healthcare-associated pneumonia) (Acute) Healthcare-associated pneumonia (Acute) Anemia (Acute) 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 (Acute) SYEDA (acute kidney injury) (Resolved) Pneumothorax (Acute) Hypercalcemia (Acute) Pneumothorax of right lung after biopsy (Acute) Pneumothorax (Acute) SYEDA (acute kidney injury) (Acute) Hypercalcemia of malignancy (Acute) Lung cancer (Acute) COPD (chronic obstructive pulmonary disease) (Acute) History of bronchoscopy (Acute) Patient is a 62-year-old gentleman currently undergoing chemotherapy for squamous cell carcinoma involving the lung who presented with progressive shortness of breath and assessment of healthcare acquired pneumonia made admitted to regular nursing floor for further management 1. Healthcare acquired pneumonia with suspected gram-negative organisms. Patient has been admitted to regular nursing floor currently being managed with broad-spectrum antibiotic therapy with vancomycin after cultures have been sent. Patient was also placed on supplemental oxygen titrated to keep pulse ox greater than 90 2. Hypokalemia corrected per protocol 3. Hyponatremia. Patient is on IV fluids with monitoring of electrolyte 4. 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 Tobacco dependence patient did quit following discovery of his lung CA remains in remission 6. DVT prophylaxis: Enoxaparin Active Medications Albuterol/Ipratropium (Duoneb) 3 ml INHALATION Q4H.RT ANIL Diphenhydramine HCl (Benadryl) 50 mg PO QHS [facility] Last Admin: 04/25/18 01:10 Dose: 50 mg Enoxaparin Sodium (Lovenox) 40 mg SC DAILY@1000 ANIL Heparin Sodium (Beef Lung) (Heparin 500 Unit/5 Ml (100/Ml)) 500 unit IV UD PRN PRN Reason: HEPARIN FLUSH Piperacillin Sod/Tazobactam Sod (Zosyn) 3.375 gm in 50 mls @ 12.5 mls/hr IV Q8 [facility] Last Admin: 04/25/18 06:29 Dose: 12.5 mls/hr Vancomycin IV Pharmacy to Dose (1 ea/ Sodium Chloride) 500 mls @ 250 mls/hr IV X1 PRN; Protocol PRN Reason: Rx to Dose Vancomycin HCl (Vancomycin) 1,000 mg in 200 mls @ 200 mls/hr IV Q12H ANIL Lidocaine/Prilocaine (Emla Cream W/Tegaderm) 30 gm TOPICAL DAILY PRN PRN PRN Reason: NOT SPECIFIED Loratadine (Claritin) 10 mg PO QHS [facility] Magnesium Hydroxide (Milk Of Magnesia) 30 ml PO DAILY PRN PRN PRN Reason: Constipation Methylprednisolone (Solu-Medrol) 40 mg IV Q8 [facility] Last Admin: 04/25/18 06:28 Dose: 40 mg Metoclopramide HCl (Reglan) 10 mg PO 0700,1100,1600,2200 ANIL Last Admin: 04/25/18 06:29 Dose: 10 mg Nicotine (Nicoderm Cq (Pbkc)) 21 mg TRANSDERM. DAILY [facility] Last Admin: 04/25/18 01:10 Dose: 21 mg Ondansetron HCl (Zofran Odt) 4 mg PO Q8H PRN PRN PRN Reason: NAUSEA Oxycodone HCl (Oxyir) 5 - 10 mg PO TID PRN PRN PRN Reason: PAIN Last Admin: 04/25/18 01:16 Dose: 5 mg Pantoprazole Sodium (Protonix) 20 mg PO DAILY ANIL Sertraline HCl (Zoloft) 50 mg PO QHS ANIL Sodium Chloride () 5 - 30 ml IV UD PRN PRN Reason: SALINE FLUSH Sodium Chloride () 10 ml IV UD PRN PRN Reason: VAD FLUSH Code Visit Inpatient E&M: 58835 Subs Hosp L3
[2018-04-25] MEDS: Pantoprazole Sodium 20 MG Tablet PO (10:13)
[2018-04-25] MEDS: Enoxaparin 40 MG/0.4 ML Syringe SC (10:13)
--- NOTE | 2018-04-25 10:25 | CASEMGMT ---
JOSE MAYA Face to Face with patient for initial transition planning/care coordination assessment. JOSE MAYA introduced self and role at [facility]. Patient lying in bed, alert and oriented, family at bedside. Patient willing to participate in assessment and is able to answer all questions appropriately. Care providers, pharmacy, and demographics verified. See link attached. Patient wishes to discharge home, denies need for home health at this time. Patient states he has no further needs or concerns at this time. Patient currently on oxygen will monitor for need for home setup. CM to follow for discharge planning needs that may arise. Disposition Plan: Patient to discharge home with family support and follow-up plans in place. Monitor for home oxygen Roopa RESTREPO, RN, CM
[2018-04-25] MEDS: Loratadine 10 MG Tablet PO (22:55)
[2018-04-25] MEDS: Acetaminophen 325 MG Tablet 650 MG PO (23:43)
[2018-04-26] VITALS (8 sets, daily range): BP systolic 122–131; BP diastolic 75–79; PULSE 96–108; RESP 16–20; TEMP 36.6–36.8; O2SAT 92–97
[2018-04-26] MEDS: Vancomycin IV 1,000 MG/200 ML BAG 200 MG IV (02:07)
[2018-04-26] MEDS: Piperacil/Tazobactam 3.375 GM/50 ML ML IV ×3 (05:34→21:51)
[2018-04-26] MEDS: Ipratropium/Albuterol Sulfate 3 ML AMPUL.NEB INHALATION ×4 (06:58→19:11)
[2018-04-26] MEDS: oxyCODONE 5 MG Tablet PO (07:15)
[2018-04-26] MEDS: Metoclopramide 10 MG Tablet PO ×4 (07:15→21:51)
--- NOTE | 2018-04-26 07:55 | PCM.PN.HOSP ---
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 Currently off oxygen. W BC count however is significantly elevated to 38,000. Hemoglobin down to 7.0. Consultation was placed to patient's oncologist Objective: GENERAL: cooperative HEENT: Atraumatic moist oral mucosa EYES; Anicteric, Normal Conjunctiva NECK; supple, normal thyroid, no distended JVD. RESPIRATORY: Diminished to auscultation bilaterally, CARDIOVASCULAR: Regular S1 S2, no audible murmurs GI: soft, non-tender, normoactive bowel sounds, : No Renal angle tenderness; No wilkerson EXTREMITIES: No edema, no clubbing, no cyanosis. MUSCULOSKELTAL: No Joint Tenderness; no muscle waisting NEURO: Awake; no lateralizing signs. SKIN: No Rash; no nodules PSYCH; Normal affect Vitals/I&O's: Vital Signs Temp Pulse Resp BP Pulse Ox 98 F 98 16 126/79 H 94 04/26/18 02:00 04/26/18 06:58 04/26/18 06:58 04/26/18 02:00 04/26/18 06:58 Oxygen Flow Rate (L/min) 1 Oxygen Delivery Method Room Air Weight: 70.3 kg Body Mass Index (BMI) 22.8 Intake and Output for Last 24 Hours 04/24/18 04/25/18 04/26/18 23:59 23:59 23:59 Intake Total 1875 / 1875 711 / 711 Balance 187 / 187 711 / 711 Current Medications Acetaminophen (Tylenol) 650 mg PO Q6H PRN PRN PRN Reason: Non-cardiac pain (mod-severe) Last Admin: 04/25/18 23:43 Dose: 650 mg Albuterol/Ipratropium (Duoneb) 3 ml INHALATION Q4H.RT [facility] Last Admin: 04/26/18 06:58 Dose: 3 ml Diphenhydramine HCl (Benadryl) 50 mg PO QHS ANIL Last Admin: 04/25/18 22:54 Dose: 50 mg Enoxaparin Sodium (Lovenox) 40 mg SC DAILY@1000 ANIL Last Admin: 04/25/18 10:13 Dose: 40 mg Heparin Sodium (Beef Lung) (Heparin 500 Unit/5 Ml (100/Ml)) 500 unit IV UD PRN PRN Reason: HEPARIN FLUSH Piperacillin Sod/Tazobactam Sod (Zosyn) 3.375 gm in 50 mls @ 12.5 mls/hr IV Q8 [facility] Last Admin: 04/26/18 05:34 Dose: 12.5 mls/hr Vancomycin IV Pharmacy to Dose (1 ea/ Sodium Chloride) 500 mls @ 250 mls/hr IV X1 PRN; Protocol PRN Reason: Rx to Dose Vancomycin HCl (Vancomycin) 1,000 mg in 200 mls @ 200 mls/hr IV Q12H [facility] Last Admin: 04/26/18 02:07 Dose: 200 mls/hr Lidocaine/Prilocaine (Emla Cream W/Tegaderm) 30 gm TOPICAL DAILY PRN PRN PRN Reason: NOT SPECIFIED Loratadine (Claritin) 10 mg PO QHS [facility] Last Admin: 04/25/18 22:55 Dose: 10 mg Magnesium Hydroxide (Milk Of Magnesia) 30 ml PO DAILY PRN PRN PRN Reason: Constipation Methylprednisolone (Solu-Medrol) 40 mg IV Q8 [facility] Last Admin: 04/26/18 05:34 Dose: 40 mg Metoclopramide HCl (Reglan) 10 mg PO 0700,1100,1600,2200 [facility] Last Admin: 04/26/18 07:15 Dose: 10 mg Nicotine (Nicoderm Cq (Pbkc)) 21 mg TRANSDERM. DAILY [facility] Last Admin: 04/25/18 10:13 Dose: 21 mg Ondansetron HCl (Zofran Odt) 4 mg PO Q8H PRN PRN PRN Reason: NAUSEA Oxycodone HCl (Oxyir) 5 - 10 mg PO TID PRN PRN PRN Reason: PAIN Last Admin: 04/26/18 07:15 Dose: 10 mg Pantoprazole Sodium (Protonix) 20 mg PO DAILY [facility] Last Admin: 04/25/18 10:13 Dose: 20 mg Sertraline HCl (Zoloft) 50 mg PO QHS [facility] Last Admin: 04/25/18 22:55 Dose: 50 mg Sodium Chloride () 5 - 30 ml IV UD PRN PRN Reason: SALINE FLUSH Sodium Chloride () 10 ml IV UD PRN PRN Reason: VAD FLUSH Medical Necessity - Tobacco Use Smoking Status: Former smoker Assessment/Plan All Active Problems (Last Reviewed 04/13/18 @ 12:57 by Christin Antonio) Chemotherapy management, encounter for (Acute) HCAP (healthcare-associated pneumonia) (Acute) Healthcare-associated pneumonia (Acute) Anemia (Acute) 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 (Acute) SYEDA (acute kidney injury) (Resolved) Pneumothorax (Acute) Hypercalcemia (Acute) Pneumothorax of right lung after biopsy (Acute) Pneumothorax (Acute) SYEDA (acute kidney injury) (Acute) Hypercalcemia of malignancy (Acute) Lung cancer (Acute) COPD (chronic obstructive pulmonary disease) (Acute) History of bronchoscopy (Acute) Patient is a 62-year-old gentleman currently undergoing chemotherapy for squamous cell carcinoma involving the lung who presented with progressive shortness of breath and assessment of healthcare acquired pneumonia made admitted to regular nursing floor for further management 1. Healthcare acquired pneumonia with suspected gram-negative organisms. Patient has been admitted to regular nursing floor currently being managed with broad-spectrum antibiotic therapy with vancomycin after cultures have been sent. Patient was also placed on supplemental oxygen titrated to keep pulse ox greater than 90 2. Hypokalemia corrected per protocol 3. Hyponatremia. Patient is on IV fluids with monitoring of electrolyte 4. 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 Tobacco dependence patient did quit following discovery of his lung CA remains in remission 6. DVT prophylaxis: Enoxaparin 7. Anemia secondary to anemia of malignancy as well as patient's chemotherapy monitoring H&H with plans to transfuse if patient becomes symptomatic or hemoglobin falls below 7 8. Leukocytosis multifactorial including patient's underlying infections, recent administration of Neulasta as well as concomitant use of steroid which since been modified Active Medications Albuterol/Ipratropium (Duoneb) 3 ml INHALATION Q4H.RT ANIL Diphenhydramine HCl (Benadryl) 50 mg PO QHS [facility] Last Admin: 04/25/18 01:10 Dose: 50 mg Enoxaparin Sodium (Lovenox) 40 mg SC DAILY@1000 ANIL Heparin Sodium (Beef Lung) (Heparin 500 Unit/5 Ml (100/Ml)) 500 unit IV UD PRN PRN Reason: HEPARIN FLUSH Piperacillin Sod/Tazobactam Sod (Zosyn) 3.375 gm in 50 mls @ 12.5 mls/hr IV Q8 [facility] Last Admin: 04/25/18 06:29 Dose: 12.5 mls/hr Vancomycin IV Pharmacy to Dose (1 ea/ Sodium Chloride) 500 mls @ 250 mls/hr IV X1 PRN; Protocol PRN Reason: Rx to Dose Vancomycin HCl (Vancomycin) 1,000 mg in 200 mls @ 200 mls/hr IV Q12H [facility] Lidocaine/Prilocaine (Emla Cream W/Tegaderm) 30 gm TOPICAL DAILY PRN PRN PRN Reason: NOT SPECIFIED Loratadine (Claritin) 10 mg PO QHS [facility] Magnesium Hydroxide (Milk Of Magnesia) 30 ml PO DAILY PRN PRN PRN Reason: Constipation Methylprednisolone (Solu-Medrol) 40 mg IV Q8 [facility] Last Admin: 04/25/18 06:28 Dose: 40 mg Metoclopramide HCl (Reglan) 10 mg PO 0700,1100,1600,2200 [facility] Last Admin: 04/25/18 06:29 Dose: 10 mg Nicotine (Nicoderm Cq (Pbkc)) 21 mg TRANSDERM. DAILY [facility] Last Admin: 04/25/18 01:10 Dose: 21 mg Ondansetron HCl (Zofran Odt) 4 mg PO Q8H PRN PRN PRN Reason: NAUSEA Oxycodone HCl (Oxyir) 5 - 10 mg PO TID PRN PRN PRN Reason: PAIN Last Admin: 04/25/18 01:16 Dose: 5 mg Pantoprazole Sodium (Protonix) 20 mg PO DAILY [facility] Sertraline HCl (Zoloft) 50 mg PO QHS [facility] Sodium Chloride () 5 - 30 ml IV UD PRN PRN Reason: SALINE FLUSH Sodium Chloride () 10 ml IV UD PRN PRN Reason: VAD FLUSH Code Visit Inpatient E&M: 06114 [facility] Hosp
[2018-04-26] MEDS: 0.9% NaCl Peripheral Flush Adult/Peds IV ×2 (08:35→21:52)
[2018-04-26 08:47] LABS: Hematocrit 21.4 % (40-54); Mean Corp Hgb Conc 32.7 g/gl (32-36); Mean Corpuscular Hgb 30.2 pg (27.0-32.0); Mean Corpuscular Volume 92.2 fL (80-94); Mean Platelet Vol. 8.7 fl (6.2-12.0); Platelet Count 190 K/mm3 (150-450); RBC Distribution Width CV 15.3 % (11.6-14.6); RBC Distribution Width SD 48.7 fl (35.1-43.9); Red Blood Count 2.32 M/mm3 (4.6-6.2); White Blood Count 38.7 K/mm3 (4.4-11.0)
[2018-04-26 08:48] LABS: Scan Indicated on CBC? Y/N YES- FLAGS NOTED
[2018-04-26 09:22] LABS: Anion Gap 7 (5-15); BUN 10 mg/dL (7-18); BUN/Creat Ratio 14.4 RATIO (10-20); Calcium,Total 10.3 mg/dL (8.5-10.1); Chloride 101 mmol/L (98-107); Creatinine, Serum 0.69 mg/dL (0.70-1.30); EST Glomerular Filtration Rate 123 mL/min (>60); Est Glom Filt Rate - Afr Amer 149 mL/min (>60); Estimated Creatinine Clearance 110.37 ml/min; Glucose 128 mg/dL (74-106); Potassium 3.4 mmol/L (3.5-5.1); Sodium Level 137 mmol/L (136-145)
[2018-04-26] MEDS: Enoxaparin 40 MG/0.4 ML Syringe SC (10:00)
[2018-04-26] MEDS: Pantoprazole Sodium 20 MG Tablet PO (10:01)
[2018-04-26] MEDS: oxyCODONE 5 MG Tablet 10 MG PO ×3 (11:48→20:28)
[2018-04-26 12:35] LABS: Vancomycin, Trough Level 10.1 ug/mL (5.0-15.0)
--- NOTE | 2018-04-26 15:58 | ONC.CONS.INP ---
Consult Referring Physician: Dr. Howard Mitchell Consult Results: NSCLC and pneumonia. Subjective Date of Service:: 04/26/18 Chief Complaint: SOB History of Present Illness: 62 year old male patient with a history of metastatic lung cancer on chemotherapy with Carboplatin and Gemzar, presents to the ER with shortness of breath and productive cough. He was found to have R lower lobe density and effusion on CXR. He was started on broad spectrum antibiotics. He feels better, SOB has improved. 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 (Chronic) history of port-a-cath insertion (Chronic) 02/28/18 Depression (Chronic) Femoral fracture (Chronic) hemangioma Past Medical/Surgical History: Past Medical History - Most Recent Inpatient Visit Past Medical History Start: 04/25/18 00:13 Text: Status: Complete Freq: ONCE Protocol: Document 04/25/18 00:13 [place] (Rec: 04/25/18 00:44 CO [id number]) BMI Required to complete PMH What is Patient's BMI 22.9 Past Medical History Unable History Recalled No Query Text:Pt Unable/Family Not Present Neurologic Medical History Hx Stroke/TIA No Hx Dementia/Alzheimer's No Hx Parkinson's Disease No Hx Seizures No Hx Multiple Sclerosis No Hx Migraines No Cardiac Medical History VTE Present on Admission No Hx of Deep Vein Thrombosis/VTE/PE No Hx Hypertension No Hx Chest Pain/Angina No Hx Heart Attack No Hx Cardiac Surgery/Stents/Etc. No Hx Heart Failure No Hx Pacemaker/AICD No Hx Irregular Heartbeat and/or Afib No Hx Anticoagulant Therapy No Query Text:(Coumadin, Aspirin, Plavix, Xarelto, etc.) Hx Pain in Legs when Walking/Leg Cramps Yes Respiratory Medical History Hx COPD No Hx Emphysema Yes Hx Smoking Yes: QUIT 01/01/18 Smoking Status Former smoker Hx Tobacco Use in last 12 months Yes Sent to [facility] Yes Hx Sleep Apnea No Do you snore loudly (louder than talking No or can be heard through closed doors)? Do you often feel tired/ fatigued/ No sleepy during daytime? Has anyone observed you stop breathing No during sleep? STOP Results Negative GI Medical History Hx Ulcer No Hx Hepatitis No Hx Cirrhosis No Hx GI Bleed No Hx Unplanned Weight Loss Yes: losing about 5 lbs per week Genitourinary Medical History Indwelling Catheter in Place on Arrival/ No Admission Hx Renal Disease No Hx Dialysis No Musculoskeletal History Hx Arthritis Yes: L ANKLE, R KNEE Hx Rheumatoid Arthritis No Endocrine Medical History Hx Diabetes No Hx Thyroid Disease No Hematologic Medical History Hx of Blood Transfusion Yes Hx of Transfusion in last 3 Months Yes Date of Last Transfusion (if within last 04/11/2018 3 months) Ever experience any problems with No transfusion(s)? Hx of Preganancy in last 3 Months N/A Nurse Filling Out Transfusion & [place] Questions: Date: 04/25/18 Time: 00:43 Psycho/Social Medical History Hx Depression Yes Hx Anxiety No Hx Behavior Disorder No Hx Alcohol Use No Hx Substance Use No Other Medical History Hx Blood Disorders No Hx Anemia Yes Hx Cancer Yes: STAGE 4 SQUAMOUS LUNG CA Hx Drug Resistant Organism No Wound/Pressure Injury Present on Arrival No /Admission Query Text:If yes, chart assessment in Shift/Clinical Findings Central Line/PICC/VAD Present on Arrival Yes /Admission Antibiotics within last 7 days? No Methicillin Resistant Staphylococcus aureus Screening Active MRSA No Risk for Readmission Number of Risk Factors 8 At Risk for Readmission Patient is At Risk For Readmission Patient is eligible for Call Back Y Past Medical History (Last Reviewed 04/13/18 @ 12:57 by Christin Antonio) Chest pain (Chronic) Pneumothorax (Acute) SYEDA (acute kidney injury) (Acute) Hypercalcemia of malignancy (Acute) Lung cancer (Acute) Depression (Chronic) COPD (chronic obstructive pulmonary disease) (Acute) Femoral fracture (Chronic) Lung mass (Acute) Past Surgical History (Last Reviewed 04/13/18 @ 12:57 by Christin Antonio) history of port-a-cath insertion (Chronic) History of bronchoscopy (Acute) History of lung biopsy (Acute) Maternal Family History: Family History (Last Reviewed 04/20/18 @ 13:31 by Florence Smith) Brother Kidney disease Hypertension Mother CHF (congestive heart failure) Family History: No pertinent history - Social History Smoking Status: Former smoker Allergies/Adverse Reactions: Allergy/AdvReac Type Severity Reaction Status Date / Time No Known Allergies Allergy Verified 04/24/18 20:38 Review of Systems Constitutional:: Reports: Fatigue. Denies: Fever, Sweats Cardiovascular:: Denies: Chest pain, Palpitations, Dyspnea on exertion, Orthopnea, PND, Shortness of breath Respiratory: Reports: Shortness of breath upon exertion. Denies: Cough, Hemoptysis, Shortness of Breath, Wheezing Gastrointestinal:: Reports: Abdominal pain Genitourinary: Denies: Dysuria, Hematuria, 15, Flank pain Musculoskeletal:: Denies: Back pain, Myalgia, Arthralgia Skin: Denies: Rash, Skin Changes, Wounds Neurological:: Denies: Headache, Dizziness, Visual changes, Tinnitus, Hearing loss Psychiatric: Denies: Anxiety, Depression, Homicidal Ideations, Suicidal Ideations Vital Signs Height 5 ft 9 in Weight: 70.3 kg Weight in Pounds 155.0 lbs Pulse Ox 97 Temperature 98.0 F Pulse Rate 96 Respiratory Rate 20 Blood Pressure 131/75 Blood Pressure Position Sitting - Physical Exam General: Alert, Oriented x3, No apparent distress, - - + port R IC area. HEENT: Atraumatic, PERRLA, EOMI, Normocephalic Oropharynx:: Dry mucosa Neck:: Supple, Trachea midline. Negative for: JVD, bilateral Cardiac:: Regular rate, Regular rhythm, Normal S1, Normal S2. Negative for: Murmur Lungs: Clear to auscultation, Excusion symmetrical. Negative for: Rhonchi, Wheezes Abdomen:: Bowel sounds x 4, Soft, Non-tender, Non-distended. Negative for: Hepatosplenomegaly Extremities:: Negative for: Cyanosis, Edema Neurological: Neuro grossly intact Skin:: - - + scaring anterior chest wall. Psychiatric:: Appropriate affect, Euthymic Lymphatics:: Negative for: Cervical lymphadenopathy, Supraclavicular lymphadenopathy, Axillary lymphadenopathy Laboratory Data: Laboratory Tests 04/26/18 04/26/18 04/26/18 Range/Units 11:50 08:35 08:35 WBC 38.7 H* (4.4-11.0) K/mm3 RBC 2.32 L (4.6-6.2) M/mm3 Hgb 7.0 L (13.0-16.5) g/dl Hct 21.4 L (40-54) % MCV 92.2 (80-94) fL MCH 30.2 (27.0-32.0) pg MCHC 32.7 (32-36) g/gl RDW 15.3 H (11.6-14.6) % RDW Differential 48.7 H (35.1-43.9) fl Plt Count 190 (150-450) K/mm3 MPV 8.7 (6.2-12.0) fl Differential Comment Diff Path Review May foll Sodium 137 (136-145) mmol/L Potassium 3.4 L (3.5-5.1) mmol/L Chloride 101 (98-107) mmol/L Carbon Dioxide 29.0 (21.0-32.0) mmol/L Anion Gap 7 (5-15) BUN 10 (7-18) mg/dL Creatinine 0.69 L (0.70-1.30) mg/dL Estim Creat Clear Calc 110.37 ml/min Est GFR (MDRD) Af Amer 149 (>60) mL/min Est GFR (MDRD) Non-Af 123 (>60) mL/min BUN/Creatinine Ratio 14.4 (10-20) RATIO Glucose 128 H (74-106) mg/dL Calcium 10.3 H (8.5-10.1) mg/dL Vancomycin Trough 10.1 (5.0-15.0) ug/mL Diagnostic Data: Diagnostic Data Chest X-Ray 04/24/18 22:40 IMPRESSION: No evidence for pneumothorax. Increasing density of the lower right lung consistent with worsening of pleural effusion along with underlying atelectasis or infiltrate. Widespread metastatic disease. Electronically Signed: Zay Chua MD at 23:00 EDT , Service support , Assessment and Plan Right-sided pneumonia with effusion on admission. Non-small cell lung cancer stage IV on chemotherapy with carboplatin and Gemzar. Suggestion is to continue therapy for pneumonia. Will hold chemotherapy now. Transfuse PRBC if Hgb < 7. If he improves, can discharge home for follow up with Dr. Paulson. Thank you. 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
[2018-04-26] MEDS: predniSONE 20 MG Tablet PO (16:18)
[2018-04-26] MEDS: Acetaminophen 325 MG Tablet 650 MG PO (16:25)
[2018-04-26] MEDS: Magnesium Hydroxide 30 ML UDC PO (20:28)
[2018-04-26] MEDS: Loratadine 10 MG Tablet PO (21:51)
[2018-04-26] MEDS: Sertraline 50 MG Tablet PO (21:51)
[2018-04-26] MEDS: DiphenhydrAMINE 25 MG Capsule 50 MG PO (21:51)
[2018-04-27] VITALS (8 sets, daily range): BP systolic 129–142; BP diastolic 78–94; PULSE 95–104; RESP 16–18; TEMP 36.2–37; O2SAT 92–96
[2018-04-27] MEDS: oxyCODONE 5 MG Tablet 10 MG PO ×3 (02:34→14:15)
[2018-04-27] MEDS: Acetaminophen 325 MG Tablet 650 MG PO ×3 (02:34→14:15)
[2018-04-27 06:01] LABS: Anion Gap 9 (5-15); BUN 12 mg/dL (7-18); BUN/Creat Ratio 17.3 RATIO (10-20); Calcium,Total 10.9 mg/dL (8.5-10.1); Chloride 101 mmol/L (98-107); Creatinine, Serum 0.69 mg/dL (0.70-1.30); EST Glomerular Filtration Rate 123 mL/min (>60); Est Glom Filt Rate - Afr Amer 149 mL/min (>60); Estimated Creatinine Clearance 110.37 ml/min; Glucose 91 mg/dL (74-106); Magnesium 2.3 mg/dL (1.6-2.6); Potassium 3.2 mmol/L (3.5-5.1); Sodium Level 139 mmol/L (136-145)
[2018-04-27 06:02] LABS: Hematocrit 21.7 % (40-54); Mean Corp Hgb Conc 32.3 g/gl (32-36); Mean Corpuscular Hgb 30.2 pg (27.0-32.0); Mean Corpuscular Volume 93.5 fL (80-94); Mean Platelet Vol. 8.7 fl (6.2-12.0); Platelet Count 158 K/mm3 (150-450); RBC Distribution Width CV 15.8 % (11.6-14.6); RBC Distribution Width SD 49.9 fl (35.1-43.9); Red Blood Count 2.32 M/mm3 (4.6-6.2)
[2018-04-27] MEDS: 0.9% NaCl Peripheral Flush Adult/Peds IV ×5 (06:02→15:23)
[2018-04-27] MEDS: Metoclopramide 10 MG Tablet PO ×2 (06:02→11:49)
[2018-04-27] MEDS: Piperacil/Tazobactam 3.375 GM/50 ML ML IV (06:02)
[2018-04-27 06:11] LABS: Scan Indicated on CBC? Y/N YES- FLAGS NOTED; White Blood Count 48.4 K/mm3 (4.4-11.0)
[2018-04-27 07:22] LABS: Differential Comment SCANNED
--- NOTE | 2018-04-27 07:24 | PN_ITS ---
Patient Problems: Active and Suspected Problems (Last Reviewed 04/13/18 @ 12:57 by Christin Antonio) HCAP (healthcare-associated pneumonia) (Acute) Healthcare-associated pneumonia (Acute) Anemia (Acute) Subjective: Patient seen overall clinical condition remarkably improved patient hemoglobin still remains at 7 DVT was made to transfuse patient with 1 unit PRBC prior to discharge Objective: GENERAL: cooperative HEENT: Atraumatic moist oral mucosa EYES; Anicteric, Normal Conjunctiva NECK; supple, normal thyroid, no distended JVD. RESPIRATORY: Diminished to auscultation bilaterally, CARDIOVASCULAR: Regular S1 S2, no audible murmurs GI: soft, non-tender, normoactive bowel sounds, : No Renal angle tenderness; No wilkerson EXTREMITIES: No edema, no clubbing, no cyanosis. MUSCULOSKELTAL: No Joint Tenderness; no muscle waisting NEURO: Awake; no lateralizing signs. SKIN: No Rash; no nodules PSYCH; Normal affect Vitals/I&O's: Vital Signs Temp Pulse Resp BP Pulse Ox 98.3 F 100 18 132/80 H 92 04/27/18 02:30 04/27/18 02:30 04/27/18 02:30 04/27/18 02:30 04/27/18 02:30 Oxygen Flow Rate (L/min) 1 Oxygen Delivery Method Room Air Weight: 70.3 kg Body Mass Index (BMI) 22.8 Intake and Output for Last 24 Hours 04/25/18 04/26/18 04/27/18 23:59 23:59 23:59 Intake Total 1874 / 1812 266 / 266 Balance 1874 266 / 266 Laboratory Results 04/26/18 08:35: WBC 38.7 H*, RBC 2.32 L, Hgb 7.0 L, Hct 21.4 L, MCV 92.2, MCH 30.2, MCHC 32.7, RDW 15.3 H, RDW Differential 48.7 H, Plt Count 190, MPV 8.7, Differential Comment , Diff Path Review November04/26/18 08:35: Sodium 137, Potassium 3.4 L, Chloride 101, Carbon Dioxide 29.0, Anion Gap 7, BUN 10, Creatinine 0.69 L, Estim Creat Clear Calc 110.37, Est GFR (MDRD) Af Amer 149, Est GFR (MDRD) Non-Af 123, BUN/Creatinine Ratio 14.4, Glucose 128 H, Calcium 10.3 H 04/26/18 11:50: Vancomycin Trough 10.1 04/27/18 05:40: WBC 48.4 H*, RBC 2.32 L, Hgb 7.0 L, Hct 21.7 L, MCV 93.5, MCH 30.2, MCHC 32.3, RDW 15.8 H, RDW Differential 49.9 H, Plt Count 158, MPV 8.7, Differential Comment SCANNED, Diff Path Review November foll 04/27/18 05:40: Sodium 139, Potassium 3.2 L, Chloride 101, Carbon Dioxide 29.0, Anion Gap 9, BUN 12, Creatinine 0.69 L, Estim Creat Clear Calc 110.37, Est GFR (MDRD) Af Amer 149, Est GFR (MDRD) Non-Af 123, BUN/Creatinine Ratio 17.3, Glucose 91, Calcium 10.9 H, Magnesium 2.3 Current Medications Acetaminophen (Tylenol) 650 mg PO Q6H PRN PRN PRN Reason: Non-cardiac pain (mod-severe) Last Admin: 04/27/18 02:34 Dose: 650 mg Albuterol/Ipratropium (Duoneb) 3 ml INHALATION Q4H.RT [facility] Last Admin: 04/26/18 23:41 Dose: Not Given Diphenhydramine HCl (Benadryl) 50 mg PO QHS [facility] Last Admin: 04/26/18 21:51 Dose: 50 mg Enoxaparin Sodium (Lovenox) 40 mg SC DAILY@1000 [facility] Last Admin: 04/26/18 10:00 Dose: 40 mg Heparin Sodium (Beef Lung) (Heparin 500 Unit/5 Ml (100/Ml)) 500 unit IV UD PRN PRN Reason: HEPARIN FLUSH Piperacillin Sod/Tazobactam Sod (Zosyn) 3.375 gm in 50 mls @ 12.5 mls/hr IV Q8 [facility] Last Admin: 04/27/18 06:02 Dose: 12.5 mls/hr Lidocaine/Prilocaine (Emla Cream W/Tegaderm) 30 gm TOPICAL DAILY PRN PRN PRN Reason: NOT SPECIFIED Loratadine (Claritin) 10 mg PO QHS [facility] Last Admin: 04/26/18 21:51 Dose: 10 mg Magnesium Hydroxide (Milk Of Magnesia) 30 ml PO DAILY PRN PRN PRN Reason: Constipation Last Admin: 04/26/18 20:28 Dose: 30 ml Metoclopramide HCl (Reglan) 10 mg PO 0700,1100,1600,2200 [facility] Last Admin: 04/27/18 06:02 Dose: 10 mg Nicotine (Nicoderm Cq (Pbkc)) 21 mg TRANSDERM. DAILY [facility] Last Admin: 04/26/18 10:00 Dose: 21 mg Ondansetron HCl (Zofran Odt) 4 mg PO Q8H PRN PRN PRN Reason: NAUSEA Oxycodone HCl (Oxyir) 10 mg PO Q4H PRN PRN PRN Reason: SEVERE PAIN (6-10/10) Last Admin: 04/27/18 02:34 Dose: 10 mg Pantoprazole Sodium (Protonix) 20 mg PO DAILY [facility] Last Admin: 04/26/18 10:01 Dose: 20 mg Prednisone () 20 mg PO BIDCM [facility] Last Admin: 04/26/18 16:18 Dose: 20 mg Sertraline HCl (Zoloft) 50 mg PO QHS [facility] Last Admin: 04/26/18 21:51 Dose: 50 mg Sodium Chloride () 5 - 30 ml IV UD PRN PRN Reason: SALINE FLUSH Last Admin: 04/27/18 06:04 Dose: 30 ml Sodium Chloride () 10 ml IV UD PRN PRN Reason: VAD FLUSH Medical Necessity - Tobacco Use Smoking Status: Former smoker Assessment/Plan All Active Problems (Last Reviewed 04/13/18 @ 12:57 by Christin Antonio) Chemotherapy management, encounter for (Acute) HCAP (healthcare-associated pneumonia) (Acute) Healthcare-associated pneumonia (Acute) Anemia (Acute) SYEDA (acute kidney injury) (Resolved) Pneumothorax (Acute) Hypercalcemia (Acute) Pneumothorax of right lung after biopsy (Acute) Pneumothorax (Acute) SYEDA (acute kidney injury) (Acute) Hypercalcemia of malignancy (Acute) Lung cancer (Acute) COPD (chronic obstructive pulmonary disease) (Acute) History of bronchoscopy (Acute) Patient is a 62-year-old gentleman currently undergoing chemotherapy for squamous cell carcinoma involving the lung who presented with progressive shortness of breath and assessment of healthcare acquired pneumonia made admitted to regular nursing floor for further management 1. Healthcare acquired pneumonia with suspected gram-negative organisms. Shannon ent has been admitted to regular nursing floor currently being managed with broad-spectrum antibiotic therapy with vancomycin after cultures have been sent. Patient was also placed on supplemental oxygen titrated to keep pulse ox greater than 90 2. Hypokalemia corrected per protocol 3. Hyponatremia. Patient is on IV fluids with monitoring of electrolyte 4. 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 Tobacco dependence patient did quit following discovery of his lung CA remains in remission 6. DVT prophylaxis: Enoxaparin 7. Anemia secondary to anemia of malignancy as well as patient's chemotherapy monitoring H&H with plans to transfuse if patient becomes symptomatic or hemoglobin falls below 7 8. Leukocytosis multifactorial including patient's underlying infections, recent administration of Neulasta as well as concomitant use of steroid which since been modified Active Medications Albuterol/Ipratropium (Duoneb) 3 ml INHALATION Q4H.RT [facility] Diphenhydramine HCl (Benadryl) 50 mg PO QHS [facility] Last Admin: 04/25/18 01:10 Dose: 50 mg Enoxaparin Sodium (Lovenox) 40 mg SC DAILY@1000 ANIL Heparin Sodium (Beef Lung) (Heparin 500 Unit/5 Ml (100/Ml)) 500 unit IV UD PRN PRN Reason: HEPARIN FLUSH Piperacillin Sod/Tazobactam Sod (Zosyn) 3.375 gm in 50 mls @ 12.5 mls/hr IV Q8 [facility] Last Admin: 04/25/18 06:29 Dose: 12.5 mls/hr Vancomycin IV Pharmacy to Dose (1 ea/ Sodium Chloride) 500 mls @ 250 mls/hr IV X1 PRN; Protocol PRN Reason: Rx to Dose Vancomycin HCl (Vancomycin) 1,000 mg in 200 mls @ 200 mls/hr IV Q12H [facility] Lidocaine/Prilocaine (Emla Cream W/Tegaderm) 30 gm TOPICAL DAILY PRN PRN PRN Reason: NOT SPECIFIED Loratadine (Claritin) 10 mg PO QHS [facility] Magnesium Hydroxide (Milk Of Magnesia) 30 ml PO DAILY PRN PRN PRN Reason: Constipation Methylprednisolone (Solu-Medrol) 40 mg IV Q8 [facility] Last Admin: 04/25/18 06:28 Dose: 40 mg Metoclopramide HCl (Reglan) 10 mg PO 0700,1100,1600,2200 AN[facility] Last Admin: 04/25/18 06:29 Dose: 10 mg Nicotine (Nicoderm Cq (Pbkc)) 21 mg TRANSDERM. DAILY [facility] Last Admin: 04/25/18 01:10 Dose: 21 mg Ondansetron HCl (Zofran Odt) 4 mg PO Q8H PRN PRN PRN Reason: NAUSEA Oxycodone HCl (Oxyir) 5 - 10 mg PO TID PRN PRN PRN Reason: PAIN Last Admin: 04/25/18 01:16 Dose: 5 mg Pantoprazole Sodium (Protonix) 20 mg PO DAILY AN[facility] Sertraline HCl (Zoloft) 50 mg PO QHS ANIL Sodium Chloride () 5 - 30 ml IV UD PRN PRN Reason: SALINE FLUSH Sodium Chloride () 10 ml IV UD PRN PRN Reason: VAD FLUSH Code Visit Inpatient E&M: 34580 Subs Hosp L2
[2018-04-27] MEDS: Ipratropium/Albuterol Sulfate 3 ML AMPUL.NEB INHALATION ×2 (07:55→11:32)
--- NOTE | 2018-04-27 08:43 | DCINST_ITS ---
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 DAILY #30 patch 03/17/18 Lidocaine/Prilocaine [Lidocaine-Prilocaine Cream] 30 gm TP DAILY PRN PRN #1 cream..g. 03/23/18 Ondansetron HCl [Zofran] 4 mg PO Q8H PRN PRN #30 tab 03/23/18 Metoclopramide [Reglan] 10 mg PO 4X/DAY 30 Days #120 tab 03/28/18 Oxycodone HCl/Acetaminophen [Percocet 5-325] 1 - 2 tablet PO Q4H PRN 04/24/18 Loratadine [Claritin] 10 mg PO QHS 04/25/18 Sertraline HCl [Zoloft] 50 mg PO QHS 04/25/18 Amoxicillin/Potassium Clav [Amox Tr-K Clv 875-125 mg Tab] 1 each PO BID #14 tablet 04/27/18 The following prescriptions were given: Amoxicillin/Potassium Clav [Amox Tr-K Clv 875-125 mg Tab] 1 each PO BID #14 tablet Primary Care Physician: Reece Howe MD [Primary Care Provider] - Please follow up with your Primary Care Physician in: in 5-7 days Test Results: Test results from this visit will be discussed in further detail at your follow- up appointment, if applicable. Please Follow Up With: Howie Frey MD When: as scheduled Proposed Discharge Date: 04/27/18
--- NOTE | 2018-04-27 08:44 | PCM.DC.SUM ---
Discharge Date and Diagnosis - Problem List Patient Problems: Active and Suspected Problems (Last Reviewed 04/13/18 @ 12:57 by Christin Antonio) HCAP (healthcare-associated pneumonia) (Acute) Healthcare-associated pneumonia (Acute) Anemia (Acute) Date of Admission: 04/24/18 Date of Discharge: 04/27/18 - Primary Discharge Diagnosis Active and Suspected Problems (Last Reviewed 04/13/18 @ 12:57 by Christin Antonio) HCAP (healthcare-associated pneumonia) (Acute) Healthcare-associated pneumonia (Acute) Anemia (Acute) - Secondary Discharge Diagnosis Chronic Problems (Last Reviewed 04/13/18 @ 12:57 by Christin Antonio) 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 Increasing density of the lower right lung consistent with worsening of pleural effusion along with underlying atelectasis or infiltrate. Widespread metastatic disease. Electronically Signed: Zay Chua MD at 23:00 EDT , Service support , Summary of Care Provided: Patient is a 62-year-old gentleman currently undergoing chemotherapy for squamous cell carcinoma involving the lung who presented with progressive shortness of breath and assessment of healthcare acquired pneumonia made admitted to regular nursing floor for further management 1. Healthcare acquired pneumonia with suspected gram-negative organisms. Patient has been admitted to regular nursing floor currently being managed with broad-spectrum antibiotic therapy with vancomycin after cultures have been sent. Patient was also placed on supplemental oxygen titrated to keep pulse ox greater than 90 2. Hypokalemia corrected per protocol 3. Hyponatremia. Patient is on IV fluids with monitoring of electrolyte 4. 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 Tobacco dependence patient did quit following discovery of his lung CA remains in remission 6. DVT prophylaxis: Enoxaparin 7. Anemia secondary to anemia of malignancy as well as patient's chemotherapy monitoring H&H with plans to transfuse if patient becomes symptomatic or hemoglobin falls below 7 8. Leukocytosis multifactorial including patient's underlying infections, recent administration of Neulasta as well as concomitant use of steroid which since been modified. Patient has significant leukocytosis at the time of discharge was instructed to follow-up with oncology for repeat labs as outpatient Physical examination at the time of discharge GENERAL: cooperative HEENT: Atraumatic moist oral mucosa EYES; Anicteric, Normal Conjunctiva NECK; supple, normal thyroid, no distended JVD. RESPIRATORY: Diminished to auscultation bilaterally, CARDIOVASCULAR: Regular S1 S2, no audible murmurs GI: soft, non-tender, normoactive bowel sounds, : No Renal angle tenderness; No wilkerson NEURO: Awake; no lateralizing signs. SKIN: No Rash; no nodules PSYCH; Normal affect Time spent on discharge; 39 minutes Discharge Diet: No Restrictions Home Medications: Medications to take at Discharge Omeprazole [Prilosec] 20 mg PO DAILY 02/27/18 DiphenhydrAMINE [Benadryl] 50 mg PO QHS 03/16/18 Nicotine [Nicoderm Cq] 21 mg TRANSDERM. DAILY #30 patch 03/17/18 Lidocaine/Prilocaine [Lidocaine-Prilocaine Cream] 30 gm TP DAILY PRN PRN #1 cream..g. 03/23/18 Ondansetron HCl [Zofran] 4 mg PO Q8H PRN PRN #30 tab 03/23/18 Metoclopramide [Reglan] 10 mg PO 4X/DAY 30 Days #120 tab 03/28/18 Oxycodone HCl/Acetaminophen [Percocet 5-325] 1 - 2 tablet PO Q4H PRN 04/24/18 Loratadine [Claritin] 10 mg PO QHS 04/25/18 Sertraline HCl [Zoloft] 50 mg PO QHS 04/25/18 Amoxicillin/Potassium Clav [Amox Tr-K Clv 875-125 mg Tab] 1 each PO BID #14 tablet 04/27/18 Following Prescrptions Were Given to Patient: Amoxicillin/Potassium Clav [Amox Tr-K Clv 875-125 mg Tab] 1 each PO BID #14 tablet Primary Care Physician: Reece Howe MD [Primary Care Provider] - Please follow up with your Primary Care Physician in: in 5-7 days Please Follow Up With: Howie Frey MD When: as scheduled Disposition: Home Minutes spent on discharge:: 39 Patient Condition:: Stable Medical Necessity - Tobacco Use Smoking Status: Former smoker Meaningful Use Info Meaningful Use Diagnoses (Choose all that apply): None applicable Code Visit Inpatient E&M: 06137 Disch Hosp
[2018-04-27] MEDS: predniSONE 20 MG Tablet PO (08:57)
[2018-04-27] MEDS: Pantoprazole Sodium 20 MG Tablet PO (08:58)
[2018-04-27 15:22] LABS: Pathologist Review Reviewed
[2018-04-27 15:25] LABS: Pathologist Review Reviewed
--- NOTE | 2018-04-28 17:47 | CASEMGMT ---
JOSE MAYA Discharge Follow-Up Phone Call: Discharge date: 04-27-18 LACE 11 STRATA 3 Adm Dx: HCAP, Anemia, Stage IV squamous cell carcinoma of rt lung. Attempted to make follow-up phone call. Call placed to [phone]. It sounded like call was answered and then disconnected immediately. RN FRANCESCO placed call a 2nd time in case disconnection was inadvertently done or d/t poor phone service. Again, it sounded like call was answered and then disconnected immediately. No further attempts to contact pt was made. Piotr FERMINN RN CM
== END 2018-04-27 15:27 | disposition home or self-care (01) | DRG 178 ==
LOC: ED 23:36 → MS3 23:47
PROVIDERS: Admitting Provider Family Medicine; Emergency Provider Emergency Medicine; Family Provider Family Medicine; PCP Family Medicine; Visit Provider Internal Medicine
DX: J15.6 Pneumonia due to other Gram-negative bacteria (principal); E87.1 Hypo-osmolality and hyponatremia; C77.1 Secondary and unspecified malignant neoplasm of intrathoracic lymph nodes; C34.11 Malignant neoplasm of upper lobe, right bronchus or lung; Z87.891 Personal history of nicotine dependence; Y95 Nosocomial condition; E87.6 Hypokalemia; D64.81 Anemia due to antineoplastic chemotherapy; D63.0 Anemia in neoplastic disease; T45.1X5A Adverse effect of antineoplastic and immunosuppressive drugs, initial encounter; E83.52 Hypercalcemia
CPT/HCPCS: 36415; 36592; 71046; 80048; 80202; 83735; 84484; 85025; 85027; 86850; 86900; 86920; 86922; 93005; 94640; 97802; 99282; 99406; J7030; J7040; J7050; P9016; A4216

== ENCOUNTER → 2018-05-02 14:36 | Outpatient (CLI) | payer OTHER, SELFPAY ==
--- NOTE | 2018-05-02 14:39 | CT_ITS ---
STUDY: CT CHEST WITH CONTRAST REASON FOR EXAM: Male, 62 years old. Lung cancer on chemotherapy. History of femur repair. RADIATION DOSAGE (If Supplied By Facility): CTDIvol = ( 10.99 ) mGy, DLP = ( 870.68 ) mGycm TECHNIQUE: Transaxial imaging was performed following intravenous administration of 100 ml of Isovue 300 contrast material. Individualized dose optimization techniques were used for this CT. COMPARISON: CT abdomen 05/02/2018. CT biopsy guidance 03/14/2018. FINDINGS: Is underlying emphysematous disease most pronounced in the right upper lobe. There are too numerous to count spiculated nodules and masses in both lung parenchyma with a distortion of right upper lobe parenchyma associated with interstitial extension to the medial and lateral as well as posterior pleural, spiculated masses along its inferior posterior aspect of 1.3 x 1, 0.8 x 0.8 cm image 30 series 6. There is a large spiculated mass seen within the major fissure at the confluence to the minor fissure measuring 3 x 1.3 cm image 59 series 6. A spiculated mass in the right middle lobe measures 1.2 x 1.4 cm and one hypoechoic attenuated lobular mass off 2.9 x 2.5 cm is adjacent to the anterior medial lower thoracic pleura, separation from the adjacent pericardial reflection cannot be performed. Image 98 series 6. Multiple smaller masses are noted in the right lower lobe. The left upper lobe contains a spiculated mass of 1.5 x 1.5 cm, 1.3 x 0.9 cm, in the lingula 1.7 x 1.6 cm, in the left lower lobe 1.9 x 1.9 cm, pleural-based 1.2 x 1.6 cm, left hilum 1.8 x 1.9 cm. In addition there is a moderate to large size right pleural effusion with pleural thickening best seen along the intercostal spaces, measuring up to 2.6 x 1.3 cm suspicious for underlying pleural-based masses image 95 series 2. No effusion. Normal heart and pericardium. There are calcifications of the coronary arteries. Right paratracheal soft tissue mass measures 4.4 x 3.2 x 5 cm, subcarina mass measures 2.4 x 3.8 x 3.6 cm, left hilum 1.6 x 2.4 and 20 m, 2.4 x 2.2 cm, right hilum 2.6 x 2.1 cm. The right paratracheal and subcarinal mass may be contiguous. Normal hilar regions. Normal enhanced pulmonary arteries. Normal aorta arch and descending thoracic aorta. There is atherosclerosis at the origin of the aortic arch branches with atheromatous wall thickening of the proximal left subclavian artery with mild luminal narrowing. There are mild degenerative changes of the thoracic spine. The right humeral head demonstrates areas of osteopenia without osseous destruction. No other destructive osseous lesions are noted. The stomach is not sufficiently distended, the stomach wall is indeterminate. The liver is heterogeneous in attenuation with underlying masses, areas of nodular enlargement of the left adrenal gland measuring 1.2 x 1.8 cm, there is an indistinct left renal mass of low attenuation. Left perigastric and gastroesophageal enlarged lymph nodes are noted. CT/Chest WITH Contrast IMPRESSION: Neoplastic involvement of the bilateral lung parenchyma, pleural spaces,, mediastinum, barbara, liver, lymph nodes in the upper abdomen, adrenal gland with indeterminate low-attenuation lesion in the left kidney and right humeral head. Correlation to histology recommended. Electronically Signed: So Pinon MD at 4:54 EDT , Service support ,
--- NOTE | 2018-05-02 14:39 | CT_ITS ---
STUDY: CT ABDOMEN WITH CONTRAST REASON FOR EXAM: Male, 62 years old. Lung cancer on chemotherapy, history of femur repair. RADIATION DOSAGE (If Supplied By Facility): CTDIvol = ( 10.99 ) mGy, DLP = ( 870.68 ) mGycm TECHNIQUE: Transaxial 3.75 mm images were obtained post I.V. administration of 100 ml of Isovue 300 contrast, and without oral contrast. Sagittal and coronal images were reconstructed. Individualized dose optimization techniques were used for this CT. COMPARISON: CT chest 05/02/2018 FINDINGS: [id number] effusion on the right, too numerous to count pulmonary nodules and masses, pleural-based chest wall masses along the posterior inferior pleura. Please refer to CT chest. The visualized portions of the heart are within normal limits. There are contains too numerous to count low attenuation masses in the right and left hepatic lobe, largest in the right lobe measures approximately 1.4 x 1.7 cm. There is mild intrahepatic biliary ductal dilatation. Normal gallbladder and extrahepatic biliary system. Normal spleen. Normal pancreas. Enlarged lymph nodes along the gastroesophageal junction and gastric fundus, largest measures 2.3 x 1.6 cm image 22 series 3. There are peripancreatic low-attenuation masses of 1.3 x 1 cm, largest approximately 1.5 x 1.2 cm. Abscess are seen along the superior mesenteric artery branches, largest 1.5 x 2.8 cm image 42 series 3. The adjacent proximal jejunum appears thick walled with asymmetry of wall thickness image 48 series 3. There is however limited intestinal detail due to lack of oral contrast. There is a small, circumscribed, low attenuation left adrenal mass, measuring 30 Hounsfield units. This measures 1.4 x 1.8 cm.. Normal right adrenal gland. Normal right kidney. Indeterminate left upper renal pole low attenuation mass 2.8 x 2.2 cm measuring 29 Hounsfield units more consistent with soft tissue. There is an exophytic low attenuation of 1.3 cm along the left mid kidney measuring 20 Hounsfield units slightly density in water. Left retroaortic renal vein. The stomach is not sufficiently distended, the stomach wall is indeterminate. Normal small intestine. There are multiple colonic diverticula consistent with diverticulosis. There is luminal hyperattenuation in the colon possible due to previous contrast application.. The appendix is visualized and appears normal. The great aorta Normal inferior vena cava. Normal retroperitoneum. Normal abdominal wall. There are diffuse degenerative changes of the visualized lumbar spine. There are no destructive osseous lesions. CT/Abdomen WITH IV Contrast IMPRESSION: Mesenteric lymphadenopathy, metastases to the liver and gastroesophageal junction, left adrenal gland with indeterminate low-attenuation lesion in the left upper renal pole, probable exophytic left renal cyst. The intestinal assessment is limited, there is asymmetry wall thickness involving the proximal jejunum. No overt pancreas mass detected. Histology and staging recommended. Degenerative changes, arteriosclerosis, colonic diverticulosis likely nonacute findings. Lung bases assessment please refer to CT chest. Electronically Signed: So Pinon MD at 6:47 EDT , Service support ,
== END ==
PROVIDERS: Family Provider Family Medicine; PCP Family Medicine; Visit Provider Nurse Practitioner Family
DX: C34.91 Malignant neoplasm of unspecified part of right bronchus or lung (principal)
CPT/HCPCS: 71260; 74160; Q9967; A4216